=== PATIENT | female | born 1990 | race Caucasian/White ===

== ENCOUNTER → 2022-09-07 07:45 | Outpatient (REF) | payer OTHER, SELFPAY ==
--- NOTE | 2022-09-07 07:55 | CA_ITS ---
Transthoracic Echocardiogram Patient (Last, First, Middle): Stephany Sandoval R Gender: Female Date of : 1990 Age: 32 Procedure Date: 09/07/2022 Procedure Type: Transthoracic Echocardiogram Location: OP Height: 157.48 cm Weight: 89.36 kg BSA: 1.90 m2 Heart Rate: 70 bpm BP: 102 / 70 mmHg Privacy Attorney: SB Referring MD: Quentin Quarles MD Symptoms: R01.1 - Cardiac murmur, unspecified Study Quality: Adequate ECG Rhythm: Sinus Conclusions: - The left ventricular systolic function is normal. The calculated ejection fraction is 66% by biplane method. - No obvious valvular pathology seen on this study. - There is mild dilatation of the ascending aorta measuring 3.60 cm. Findings Left Ventricle Normal left ventricular cavity size. There is normal left ventricular wall thickness. The left ventricular systolic function is normal. The calculated ejection fraction is 66% by biplane method. There is no evidence of regional wall motion abnormalities. Diastolic function is normal for age. LV peak GLS -23.4% (normal). Right Ventricle Normal right ventricular cavity size and systolic function. Atria Both atria are normal in size. Aortic Valve There is a normal trileaflet aortic valve. There is no aortic valve stenosis. There is no aortic valve regurgitation. Mitral Valve The mitral valve appears normal. There is no mitral valve regurgitation. There is no mitral valve stenosis. Pulmonic Valve There is trace pulmonic valve regurgitation. Tricuspid Valve Normal tricuspid valve structure. There is mild tricuspid valve regurgitation. There is no evidence of pulmonary hypertension. Great Vessels There is mild dilatation of the ascending aorta measuring 3.60 cm. Venous The inferior vena cava is normal in size and collapses greater than 50% with inspiration. Pericardium/Pleural There is no evidence of pericardial effusion. Prior Study Comparison No prior study available for comparison. Recommendations, Care & Conclusions No obvious valvular pathology seen on this study. Measurements 2D Linear Measurements IVSd: 0.87 0.6-0.9/0.6-1.0 cm LVIDd: 4.67 3.9-5.3/4.2-5.9 cm LVIDd Index: 2.46 2.4-3.2/2.2-3.1 cm/m2 LVIDs: 2.95 2.0-3.6 cm LVPWd: 0.79 0.7-1.1 cm LA Diam: 3.80 2.7-3.8/3.0-4.0 cm LAIDs Index: 2.00 1.5-2.3 cm/m2 LV Mass: 158.36 67-162/88-224 g LV Mass Index: 83.35 43-95/49-115 g/m2 LVOT Diam: 2.10 3.0+(-)1.3 cm 2D Systolic Function EF 4C: 64.80 >55% EF 2C: 68.50 >55% EF BiP: 65.80 >55% Mitral Valve MV Pk E: 0.69 MV PK A: 0.67 MV Decel Time: 160.00 E/A: 1.00 E'Lateral: 10.40 E'Medial: 7.62 E/E' Med: 9.10 E/E' Lat: 6.60 PHT: 47.00 MVA PHT: 4.68 Decel [place]: 4.30 Aortic Valve AoV Pk Mando: 1.58 AoV Pk Grad: 10.00 BRODIE: 3.01 LVOT LVOT Pk Mando: 1.41 LVOT Mn Mando: 1.03 LVOT VTI: 0.32 LVOT Pk Grad: 8.00 LVOT Mn Grad: 5.00 LVOT Diam: 2.10 LVOT Area: 3.46 Diastolic Function MV Pk E: 0.69 MV Pk A: 0.67 E/A: 1.00 E'Medial: 7.62 E/E' Med: 9.10 E' Laterial: 10.40 E/E' Lat: 6.60 Right Ventricle TAPSE (mm): 20.40 TVS' Mando: 11.50 Tricuspid Valve TR Pk Mando: 1.94 TR Pk Grad: 15.00 RA Press: 3.00 RVSP: 18.00 Great Vessels Aorta Sinus of Valsalva: 3.00 2.0-3.5 cm Ao Asc: 3.60 2.1-3.4 cm Ao Arch: 2.90 Pulmonary Veins Pulm Vein S/D 1.10 Pulmonary Valve PV Pk Mando: 0.83 Peak PV Grad: 3.00 Updated in Other Vendor System with Status of Final Tramaine Mcnair MD electronically signed on 09/09/2022 12:55:10 PM with status of Final
== END ==
LOC: HO.CARD 07:45
PROVIDERS: PCP Family Medicine; Visit Provider Family Medicine
DX: R91.1 Solitary pulmonary nodule (principal)
CPT/HCPCS: 93306; 93356

== ENCOUNTER 2022-09-26 11:14 | Outpatient (REF) | payer OTHER, SELFPAY ==
[2022-09-26 21:51] LABS: Folate 9.6 ng/mL (> or = 4.0); Vitamin B12 498 pg/mL (200-900)
[2022-09-28 02:21] LABS: Syphilis Screen Nonreactive (Nonreactive)
[2022-09-28 03:50] LABS: HBS Num1 60.03 mIU/mL (0-7.99); HBc Num1 0.09 S/CO (0.00-0.79); HIV AB/AG Nonreactive (Nonreactive); HIV Num 1 0.08 S/CO (0.00-0.99); Hepatitis B Core Antibody Nonreactive (Nonreactive); Hepatitis B Surface Antigen Negative (Negative); ~HepC Num1 0.08 S/CO (0.00-0.79); ~Hepatitis B Surface Antibody REACTIVE (Nonreactive); ~Hepatitis C Antibody Nonreactive (Nonreactive)
[2022-09-28 16:28] LABS: CRP High Sensitivity 3.7 mg/L
== END 2022-09-26 11:15 | disposition home or self-care (01) ==
LOC: HO.WFDLDS 11:14
PROVIDERS: Visit Provider Family Medicine
DX: Z00.00 Encounter for general adult medical examination without abnormal findings (principal); Z11.4 Encounter for screening for human immunodeficiency virus [HIV]; R20.0 Anesthesia of skin; R20.2 Paresthesia of skin; I10 Essential (primary) hypertension; E53.8 Deficiency of other specified B group vitamins; Z20.2 Contact with and (suspected) exposure to infections with a predominantly sexual mode of transmission
CPT/HCPCS: 36415; 80053; 80061; 81003; 82043; 82607; 82728; 82746; 83540; 84443; 85025; 85652; 86141; 86704; 86706; 86780; 86803; 87340; 87389

== ENCOUNTER 2022-10-05 13:49 | Outpatient (AMB) | payer OTHER, SELFPAY ==
--- NOTE | 2022-10-05 13:53 | MHC.PC.OV ---
Vital Signs 10/05/22 13:56 Height 5 ft 2 in Weight 196 lb BMI 35.8 BP 114/66 Blood Pressure Location Lt brachial Position Sitting Pulse 80 Pulse Source Pulse Oximeter Pulse Oximetry (%) 97 Oxygen Delivery Method Room Air Intake Visit Reasons: CPE with f/u labs and health maint. Intake Note: Patient is here for physical and to follow up on labs and health maintenance. Is last menstrual period known: Yes Last menstrual period: 09/26/22 Allergies No Known Allergies Allergy (Verified 10/05/22 13:57) Tobacco use date assessed: 10/05/22 Dental Screening Dental Screen Date: 10/05/22 Did you have a dental visit in the last 12 months?: Yes Did you have a dental problem in the last 6 months where you did not have access to dental care?: No Was dental information given to patient?: No HPI CPE with f/u labs and health maint. HPI Details 32 y/o female presents for a CPE with f/u labss and health maintenance. Labs were drawn 09/26/22. Reviewed labs with pt. Triglycerides 91. TC 201. LDL 131. HDL 52. Elevated CRP. 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 She notes she has an appt. with Cardiology in November. Pt reports lightheadedness and some flush/sweating feeling. Pt reports some GERD. She reports she tries to get a healthy diet and exercises. [facility] Medical History Anxiety Surgical History History of dilation and curettage Hx of inguinal hernia surgery Family History Mother High blood pressure High cholesterol Father Asthma Maternal Grandmother High blood pressure Maternal Grandfather High blood pressure Alcoholism Family/Other Asthma High blood pressure Social History Housing: House Patient Tobacco Use Status: Never used Tobacco e-Cigarette/Vaping Use: Currently Using Second Hand Smoke Exposure: No service: No Current occupational status: employed Current occupation: [employer] Cognitive needs: No Hearing needs: No Vision needs: No Female Reproductive History Menstrual Date of last menstrual period: 09/26/22 Questionnaire Thrive Questionnaire Date Thrive assessed: 08/10/22 GRAY-7 AMB Questionnaire GRAY-7 Date GRAY - 7 assessed: 08/10/22 Source: Developed by Drs. Nhan Stephens, Merry Uribe, Rodney Edge and colleagues, with an educational yenni from [employer]. Review of Systems Const Denies chills, Denies fatigue, Denies fever(s), Denies headache(s) and Denies weakness Eyes Denies change in vision ENT Denies dizziness, Denies headache(s), Denies hearing loss, Denies nasal congestion, Denies sinus pain, Denies sinus pressure and Denies sore throat Card Denies chest pain, Denies lightheadedness, Denies dyspnea and Denies other (palpitations) Resp Denies cough, Denies dyspnea and Denies wheezing GI Denies abdominal pain, Denies melena, Denies hematochezia, Denies change in bowel habits, Denies dyspepsia and Denies nausea Denies hematuria and Denies dysuria Musc Denies abnormal gait, Denies myalgias, Denies arthralgias, Denies numbness and Denies tingling Skin/Breast Denies rash, Denies unusual bruising and Denies wounds Neuro Denies abnormal gait, Denies dizziness, Denies headache(s), Denies memory loss, Denies numbness, Denies Sensory deficit (Neuro), Denies tingling and Denies weakness Psych Denies anxiety, Denies depression and Denies memory loss Endo Denies cold intolerance, Denies fatigue, Denies heat intolerance, Denies polydipsia and Denies polyuria Smith/Lymph Denies easy bleeding and Denies easy bruising Aller/Immun Denies wheezing Physical exam (Primary Care) Vital Signs: Last Vital Signs Pulse 80 10/05/22 13:56 BP 114/66 10/05/22 13:56 Pulse Ox 97 10/05/22 13:56 Oxygen Delivery Method Room Air 10/05/22 13:56 BMI result Body Mass Index 35.8 Tobacco/Smoking Status: Tobacco use Status Tobacco use date assessed 10/05/22 10/05/22 14:02 Patient Tobacco Use Status Never used Tobacco 10/05/22 14:02 e-Cigarette/Vaping Use Currently Using 10/05/22 14:02 Thrive Assessment: Date of Thrive Assessment Date Thrive assessed 08/10/22 10/05/22 14:02 Const General: no acute distress, well developed, alert and awake Nutritional Appearance: well nourished Orientation/consciousness: patient oriented x3 HENMT Head: Yes normocephalic and Yes atraumatic Ears: hearing grossly normal bilaterally and TM's normal bilaterally General nose exam: Normal external nose present and Normal nares present Mouth: Normal oral and palatal mucosa present and moist mucous membranes Teeth and gingiva: dentition normal Throat: Yes posterior oropharynx normal Eyes General: appearance normal, both eyes and all related structures Pupils: Equal, round and reactive pupils present and Pupil accommodation reflex normal EOM: EOMs intact bilaterally Neck Neck: Yes normal visual inspection, Yes no lymphadenopathy and Yes trachea midline Thyroid: Thyroid normal Carotids: no bruits Lymphatic: no lymphadenopathy noted Chest Chest palpation & inspection: normal inspection of the chest Resp Effort & Inspection: normal respiratory effort Auscultation: clear to auscultation bilaterally Cardio Rate: regular rate Rhythm: regular rhythm Heart sounds: S1 normal heart sound present, S2 normal heart sound present, no gallops, no murmurs and no rubs Bruits: no abdominal aortic bruits and no carotid bruits GI Palpation (GI): No Abdominal aortic bruit present, Soft to palpation, nontender, No hepatosplenomegaly present and No Rebound tenderness present Auscultation: normal bowel sounds General: Yes no CVA tenderness Back/Spine/Pelvis Back: no CVA tenderness Cervical Spine: cervical ROM normal and No Cervical spine tenderness Thoracic/Lumbar Spine: thoraco-lumbar ROM normal, No pain with thoraco-lumbar ROM, No thoracic spinal tenderness and No lumbar spinal tenderness Skin Lesions: no lesions Rashes: no rashes Trauma: no lacerations or abrasions Wounds: no wounds Nails: normal Neuro General: patient oriented x3 Cranial nerves: Yes Equal, round and reactive pupils present Cognition (Neuro): normal cognition Gait exam (Neuro): Normal gait present Motor exam (neuro): 5/5 motor strength present throughout Sensory Exam: No Sensory deficit (Neuro) Deep tendon reflexes (DTR's): Right patellar reflex intensity grade: 2+ and Left patellar reflex intensity grade: 2+ Extrem General: Yes normal to inspection and No edema Psych Appearance: grossly normal Affect: normal affect Attitude: cooperative Thought process: Normal thought process present Assessment and Plan Assessment & Plan (1) Adult general medical exam: Code(s): Z00.00 - Encounter for general adult medical examination without abnormal findings Plan: 32-year-old female presents for complete physical exam Encouraged healthy diet with active lifestyle and plenty of exercise (2) Heart murmur: Code(s): R01.1 - Cardiac murmur, unspecified Plan: Echocardiogram shows normal valves and cardiac function Did note small aortic dilatation She has an appointment with cardiology (3) Ascending aorta dilatation: Code(s): I77.810 - Thoracic aortic ectasia Plan: Mild aortic dilatation Blood pressures are well controlled Cardiac function normal She has an appointment with cardiology (4) History of Mcgee's palsy: Code(s): Z86.69 - Personal history of other diseases of the nervous system and sense organs Plan: Had given her a script for Neurontin which is helping She can continue this however she can also try weaning off this at any time to see if this has resolved (5) Numbness and tingling: Code(s): R20.0 - Anesthesia of skin; R20.2 - Paresthesia of skin Plan: Numbness and tingling bilateral hands and feet which is intermittent. She does note that she has anxiety Lab work was unrevealing She will let me know if this changes in any way (6) Lightheadedness: Code(s): R42 - Dizziness and giddiness Plan: As above, she has issues with anxiety and I suspect that this is the cause. Cardiac function is normal by echo. Lab work was unrevealing Advise she hydrate well She has an appointment with cardiology (7) GERD (gastroesophageal reflux disease): Code(s): K21.9 - Gastro-esophageal reflux disease without esophagitis Plan: Frequent GERD symptoms essentially every day Start omeprazole Referred to GI (8) Anxiety: Code(s): F41.9 - Anxiety disorder, unspecified Plan: Has used hydroxyzine with some again seen Still has some symptoms and many of them are somatic such as flushing/sweating and some lightheadedness. Will trial a low dose of clonidine p.r.n. (9) Screening for cervical cancer: Code(s): Z12.4 - Encounter for screening for malignant neoplasm of cervix Orders: Referrals Gastroenterology Referral K21.9 - Gastro-esophageal reflux disease without esophagitis [employer] Referral Z12.4 - Encounter for screening for malignant neoplasm of cervix Medications: New clonidine HCl 0.1 mg PO BID 30 days PRN 60 tabs 1RF Anxiety/flushing/sweating omeprazole 40 mg (2 x 20 mg) PO DAILY 60 caps 2RF 30 days Coding Level of Care Code Est Pt Level 4 (51605) Est Pt Prev Care 18-39y(42253) Diagnoses Adult general medical exam Z00.00 Heart murmur R01.1 Ascending aorta dilatation I77.810 History of Mcgee's palsy Z86.69 Numbness and tingling R20.0; R20.2 Lightheadedness R42 GERD (gastroesophageal reflux disease) K21.9 Anxiety F41.9 Screening for cervical cancer Z12.4
[2022-10-05 13:56] VITALS: BP 114/66; PULSE 80; O2SAT 97; BMI 35.8
== END 2022-10-05 14:58 | disposition home or self-care (01) ==
PROVIDERS: Visit Provider Family Medicine
DX: Z00.00 Encounter for general adult medical examination without abnormal findings (principal); I77.810 Thoracic aortic ectasia; K21.9 Gastro-esophageal reflux disease without esophagitis; Z86.69 Personal history of other diseases of the nervous system and sense organs; F41.9 Anxiety disorder, unspecified; R01.1 Cardiac murmur, unspecified; R20.0 Anesthesia of skin; R20.2 Paresthesia of skin; R42 Dizziness and giddiness
CPT/HCPCS: 99395

== ENCOUNTER 2022-12-07 13:51 | Outpatient (AMB) | payer OTHER, SELFPAY ==
[2022-12-07 14:02] VITALS: BP 110/80; PULSE 85; BMI 35.6
--- NOTE | 2022-12-07 14:02 | MHC.OFFVIS ---
Intake Vital Signs 12/07/22 14:02 Height 5 ft 2 in Weight 194 lb 7.163 oz BMI 35.6 BP 110/80 Blood Pressure Location Lt brachial Position Sitting Pulse 85 Intake Visit Reasons: NPV/NACHO/MILD AORTA DILATION/MURMUR Intake Note: NPV w/ EKG Rn Provider Relations Required: No Accompanied by: Spouse Allergies No Known Allergies Allergy (Verified 12/07/22 14:05) Medication List - Last Reconciled 12/07/22 by Tramaine Mcnair MD No Known Home Meds HPI HPI Comments History of Present Illness Details Stephany is here for consultation for question of dilated ascending aorta. Patient herself is generally healthy without any major comorbidities. She states that she was told to have a cardiac murmur many years ago but otherwise nothing significant. She is generally active with no limitations whatsoever. Towards end of the day, she may feel some sensations of heart pounding which she believes from anxiety. No documented arrhythmias otherwise. She had an echocardiogram that had ascending aortic size measured at 3.6 cm. Otherwise, there is no family history of aortic aneurysm or aortic dissection. Her brother has congestive heart failure in his 30s but he is also extremely obese apparently. Mother has a history of atrial fibrillation. No premature coronary disease. [facility] Medical History (Updated 12/07/22 @ 14:49 by Tramaine Mcnair MD) Anxiety Surgical History History of dilation and curettage Hx of inguinal hernia surgery Family History (Updated 12/07/22 @ 14:21 by Tramaine Mcnair MD) Mother High blood pressure High cholesterol Atrial fibrillation Father Asthma Maternal Grandmother High blood pressure Maternal Grandfather High blood pressure Alcoholism Family/Other Asthma High blood pressure Brother CHF (congestive heart failure) Social History Housing: House Patient Tobacco Use Status: Never used Tobacco e-Cigarette/Vaping Use: Currently Using Second Hand Smoke Exposure: No service: No Current occupational status: employed Current occupation: [employer] Cognitive needs: No Hearing needs: No Vision needs: No Review of Systems Const Denies chills, Denies daytime sleepiness, Denies fatigue, Denies fever(s), Denies frequent falls, Denies night sweats, Denies snoring, Denies weakness, Denies weight gain and Denies weight loss Eyes Denies loss of vision ENT Denies dizziness and Denies hearing loss Card Denies chest pain, Denies chest pain with activity, Denies syncope, Denies rapid heart rate, Denies edema, Denies claudication, Denies leg edema, Denies lightheadedness, Denies palpitations, Denies dyspnea, Denies dyspnea on exertion and Denies orthopnea Resp Denies cough, Denies excessive phlegm production, Denies dyspnea, Denies dyspnea on exertion, Denies snoring and Denies wheezing GI Denies abdominal pain, Denies hematochezia, Denies change in bowel habits, Denies change in stool character, Denies heartburn, Denies nausea and Denies vomiting Denies hematuria, Denies urinary frequency and Denies dysuria Musc Denies arthralgias, Denies muscle weakness, Denies numbness and Denies tingling Skin/Breast Denies nail changes and Denies rash Neuro Denies Abnormal speech present, Denies dizziness, Denies syncope, Denies frequent falls, Denies loss of vision, Denies memory loss, Denies numbness, Denies tingling and Denies weakness Psych Denies depression and Denies memory loss Endo Denies fatigue and Denies palpitations Aller/Immun Denies wheezing Physical Exam Vital Signs: Last Vital Signs Pulse 85 12/07/22 14:02 BP 110/80 12/07/22 14:02 BMI result Body Mass Index 35.6 Const General: comfortable and no acute distress Orientation/consciousness: patient oriented x3 HEENT Other: Unremarkable Head: Yes normal to inspection Neck Neck: Yes normal visual inspection Chest Chest palpation & inspection: normal inspection of the chest Resp Auscultation: clear to auscultation bilaterally Cardio Palpation: normal PMI Heart sounds: S1 normal heart sound present, S2 normal heart sound present, no gallops, Murmur heart sound present systolic I/ and at the right sternal border and no rubs GI Palpation (GI): Soft to palpation Back/Spine/Pelvis Other: unremarkable Skin General skin exam: no rashes or lesions noted Neuro General: patient oriented x3 Speech: No Abnormal speech present Extrem General: Yes normal to inspection Psych Mental Status: mental status grossly normal Office Procedures EKG Details: EKG with sinus rhythm at 85/Min; no significant ST-T changes and otherwise unremarkable. [place] [id number], Complete Assessment & Plan Assessment & Plan (1) Mild ascending aorta dilatation: Code(s): I77.810 - Thoracic aortic ectasia (2) Heart palpitations: Code(s): R00.2 - Palpitations Plan In the recent echocardiogram, LVEF at 66%. Normal strain. Unremarkable valves. Ascending aortic size was 3.6 cm. Sinus of Valsalva and the aortic arch within normal limits. Pathophysiology of ascending aortic dilatation discussed in great detail with patient and significant other. At the current size, this is considered to be either borderline or mildly dilated only. Could also be just top-normal considering her weight. Her blood pressure seems to be very much in the normal range. There is no family history of aortic dissection or aortic aneurysm. Hence no specific management. We can recheck it sometime next year to ensure there is no significant change. If that is the case, then would be reassuring. If indeed there is a increase in size then will need follow-up. With regard to the question of palpitations, seems very nonspecific. She thinks it is just anxiety. Discussed about Holter but she thinks that will make her rather more anxious. Hence holding off at this time. Plan discussed and they are agreeable. Orders: Orders CA echo transthoracic complete 6 Months I77.810 - Thoracic aortic ectasia Coding Level of Care Code New Pt Level 3 (73342) Diagnoses Mild ascending aorta dilatation I77.810 Heart palpitations R00.2 CPT Codes EKG - CPT: 09611-[id number], Complete ([id number])
== END 2022-12-07 14:31 | disposition home or self-care (01) ==
PROVIDERS: PCP Family Medicine; Visit Provider Internal Medicine
DX: I77.810 Thoracic aortic ectasia (principal); R00.2 Palpitations
CPT/HCPCS: 93010; 99203

== ENCOUNTER → 2022-12-07 13:51 | Outpatient (BNVA) | payer OTHER, SELFPAY | PROVIDERS: PCP Family Medicine; Visit Provider Internal Medicine | DX: I77.810 Thoracic aortic ectasia (principal); R00.2 Palpitations | CPT/HCPCS: 93005 ==

== ENCOUNTER 2022-12-27 08:04 | Outpatient (AMB) | payer OTHER, SELFPAY ==
--- NOTE | 2022-12-27 08:07 | MHC.OFFVIS ---
Intake Vital Signs 12/27/22 08:19 Height 5 ft 2 in Weight 162 lb BMI 29.6 BP 120/70 Blood Pressure Location Lt brachial Position Sitting Pulse 74 Intake Visit Reasons: Gastroesophageal reflux disease (GERD) Intake Note: Patient new consult for GERD. Patient cc: N/V on and off, acid reflex with burning sensation and some diarrhea. Ceramic Plater Required: No Accompanied by: Self / Same As Patient Allergies No Known Allergies Allergy (Verified 12/27/22 08:15) HPI HPI Comments History of Present Illness Details 32-year-old female referred with persistent GERD-intermittent nausea vomiting-bile/ yellow- acid reflux since high school- no meds-she had taken Tums however not currently prescribed omeprazole not covered by insurance- she admits to alot of anxiety - no meds-she has palpitations, she was recently evaluated by Cardiology-she does have a murmur-for she will follow back with them in 1 year migraines with menses- menses normal She had an EGD and colonoscopy years ago- @ [facility]- no findings- No fever, chills hematemesis or hematochezia [facility] Medical History (Updated 12/27/22 @ 09:04 by Esmer Cook PA-C) Anxiety Surgical History History of dilation and curettage Hx of inguinal hernia surgery Family History Mother High blood pressure High cholesterol Atrial fibrillation Father Asthma Maternal Grandmother High blood pressure Maternal Grandfather High blood pressure Alcoholism Family/Other Asthma High blood pressure Brother CHF (congestive heart failure) Social History Housing: House Patient Tobacco Use Status: Never used Tobacco e-Cigarette/Vaping Use: Currently Using Second Hand Smoke Exposure: No service: No Current occupational status: employed Current occupation: [employer] Cognitive needs: No Hearing needs: No Vision needs: No Review of Systems Const All systems reviewed & are unremarkable except as noted in HPI and below Card Denies chest pain, Denies irregular heart rhythm, Denies lightheadedness and Denies dyspnea Resp Denies dyspnea GI Reports heartburn, Reports nausea and Reports vomiting Psych Reports anxiety, Denies homicidal ideation and Denies suicidal ideation Physical Exam Vital Signs: Last Vital Signs Pulse 74 12/27/22 08:19 BP 120/70 12/27/22 08:19 BMI result Body Mass Index 29.6 Const General: cooperative, healthy appearing, comfortable, no acute distress, anxious and well groomed Orientation/consciousness: patient oriented x3 Limitations: no limitations Eyes Sclerae: sclerae normal Resp Effort & Inspection: normal respiratory effort and able to speak in complete sentences Auscultation: clear to auscultation bilaterally, no rales, no rhonchi and no wheezes Cardio Rate: regular rate Rhythm: regular rhythm Heart sounds: S1 normal heart sound present, S2 normal heart sound present and Other heart sounds present (Her murmur was not appreciated) GI Palpation (GI): Soft to palpation and nontender Auscultation: normal bowel sounds Skin General skin exam: no rashes or lesions noted Neuro General: patient oriented x3 Extrem General: Yes full ROM Psych Appearance: grossly normal and well kempt Mental Status: mental status grossly normal Speech and movement: Normal speech and movement present Affect: normal affect Attitude: cooperative Thought process: Normal thought process present Thought content: Normal thought content present Insight: Good insight present (Psych) Judgement: Good judgement present (Psych) Results Reviewed Results Reviewed: Reviewed labs normal CBC, CMP no anemia liver enzymes normal Assessment & Plan Assessment & Plan (1) GERD (gastroesophageal reflux disease): Comment: Persistent acid reflux-will get H pylori stool antigen She will give trial to Carafate Code(s): K21.9 - Gastro-esophageal reflux disease without esophagitis Plan: Stool HP Cararfate U/S (2) Nausea & vomiting: Comment: Q.a.m. for many years-described bile -gallbladder/verses reflux-needs further eval Normal menses Will evaluate gallbladder Code(s): R11.2 - Nausea with vomiting, unspecified (3) Anxiety: Comment: anxiety, no medications-she feels she can deal does not want to give trial to medication-understandable however depending on persistence Code(s): F41.9 - Anxiety disorder, unspecified Plan: Discussed history, no medications, not interested at this point Plan H pylori stool antigen-if positive treat Carafate 1 g b.i.d. Reflux precautions Avoid culprits Abdominal ultrasound Orders: Orders H pylori Ag Stool Today A04.8 - Other specified bacterial intestinal infections US abdomen complete Today K21.9 - Gastro-esophageal reflux disease without esophagitis Medications: New sucralfate 1 g PO BID 4 weeks 56 tabs 0RF Patient Instructions: Very pleasant somewhat anxious 32-year-old female persistent acid reflux-may have functional component-she will continue to monitor if she prefers to manage H pylori stool antigen-if positive treat Carafate 1 g b.i.d. Reflux precautions Avoid culprits Abdominal ultrasound Coding Level of Care Code New Pt Level 3 (24446) Diagnoses GERD (gastroesophageal reflux disease) K21.9 Nausea & vomiting R11.2 Anxiety F41.9 Time Spent (min) 30
[2022-12-27 08:19] VITALS: BP 120/70; PULSE 74; BMI 29.6
== END 2022-12-28 13:12 | disposition home or self-care (01) ==
LOC: HO.HGIW 08:04
PROVIDERS: PCP Family Medicine; Visit Provider Physician Assistant
DX: K21.9 Gastro-esophageal reflux disease without esophagitis (principal); R11.2 Nausea with vomiting, unspecified; F41.9 Anxiety disorder, unspecified
CPT/HCPCS: 99203

== ENCOUNTER → 2022-12-27 08:04 | Outpatient (BNVA) | payer OTHER, SELFPAY | PROVIDERS: PCP Family Medicine; Visit Provider Physician Assistant ==

== ENCOUNTER 2023-01-13 10:44 | Outpatient (AMB) | payer OTHER, SELFPAY ==
[2023-01-13 10:54] VITALS: BMI 35.5
--- NOTE | 2023-01-13 10:54 | MHC.OFFVIS ---
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 She delivered her children at [facility]. Her last had a fast delivery but the itself she had a lot of varicose veins and she had to wear the vaginal support special underwear to help support the veins she feels like sometime she still feels heavy down there she would like to get everything checked from that point of view she does make herself void frequently in between clients at work and she does not hold her urine excessively. She does Kegel's also. She has no worries about STDs she gets very regular periods she uses condoms for control she had a Mirena in the past and she was not a fan of the hormones and control so she is better off with just the condoms. She is in a monogamous relationship her oldest child 12 years on down. 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 [facility] Medical History Anxiety Surgical History History of dilation and curettage Hx of inguinal hernia surgery Family History Mother High blood pressure High cholesterol Atrial fibrillation Father Asthma Maternal Grandmother High blood pressure Maternal Grandfather High blood pressure Alcoholism Family/Other Asthma High blood pressure Brother CHF (congestive heart failure) Social History (Updated 01/13/23 @ 11:00 by RICKY Mosqueda Housing: House Patient Tobacco Use Status: Never used Tobacco e-Cigarette/Vaping Use: Currently Using Second Hand Smoke Exposure: No service: No Current occupational status: employed Current occupation: [employer] Cognitive needs: No Hearing needs: No Vision needs: No Female Reproductive History Menstrual Age of Menarche: 11 Duration of menses: 3-5 days Date of last menstrual period: 12/22/22 control method: none Total pregnancies: 4 Full term: 3 Number of Living Children: 3 Ab spontaneous: 1 Physical Exam Vital Signs: BMI result Body Mass Index 35.5 Const General: healthy appearing, comfortable, no acute distress, well developed and alert Nutritional Appearance: average body habitus Orientation/consciousness: patient oriented x3 Limitations: no limitations HEENT Head: Yes normocephalic Neck Neck: Yes normal visual inspection Chest Chest palpation & inspection: normal inspection of the chest Breast/axilla inspection: normal inspection of the breasts and normal inspection of the axillae Breast/axilla palpation: normal palpation of the breasts and normal palpation of the axillae Resp Effort & Inspection: normal respiratory effort GI Inspection: Yes normal to inspection, No Abdominal wall edema and No distended Palpation (GI): Soft to palpation and nontender Other: Normal external exam able to visualize veins in vulva but they are not bulging or swollen all. Vagina pink and moist cervix pink moist multiparous smooth healthy mobile nontender normal scant white discharge uterus small midposition to anteverted adnexa not enlarged nontender good tone with Kegel and able to sustain the contraction with elevation as well. General: Yes bladder normal to palpation External Female Exam: normal external appearance and normal appearance of the urethra Speculum Exam - Vagina: normal appearance of the vagina, normal palpation and normal vaginal discharge Speculum Exam - Cervix: normal appearance of the cervix, normal palpation and nontender Bimanual exam- vagina & uterus: normal bimanual exam, normal palpation, uterine size normal, bladder normal to palpation, consistency normal, normal palpation, uterine mobility normal, uterine shape normal, No Cervical tenderness present, non-tender and no cervical motion tenderness Bimanual Exam- Adnexa, other: normal adnexae, no masses, normal and No adnexal tenderness Neuro General: patient oriented x3 Assessment & Plan Assessment & Plan (1) Screening for cervical cancer: Comment: no hx abnls; 01/13/23 pap.. Code(s): Z12.4 - Encounter for screening for malignant neoplasm of cervix (2) Well woman exam with routine gynecological exam: Code(s): Z01.419 - Encounter for gynecological examination (general) (routine) without abnormal findings Plan -----Discussed in this visit the following: healthy balanced diet, regular and consistent exercise, getting recommended health screens, doing the best she can for her particular health concerns, kegel exercises, pap smear screening and followup recommendations, mammography screening and SBE, normal changes in cycles in her life stage--- . Reviewed Kegel's she does them herself and she maintains good bladder function by voiding in between patients---I Had the patient and demonstrate a Kegel contraction at the end of the exam, ordered in order to explain a Kegel exercise, and instructed the patient on doing the same exercises several times a day with increasing strength each time. One useful to is to imagine pursestring around the vagina and pulling it tight and upwards as if raising the vagina, or imagining that her tight muscles are on the 1st floor and she is trying to pull them up to the 5th floor and then slowly letting them go down. To try to do these several times a day but focus on the quality and the strength of the exercises more than the quantity, and tried isolate just those muscles and not involve other body parts. ----I reviewed available options for Control Methods and their associated side effect profiles. In particular, we discussed the method most of interest to her.-is content to use condoms which work for her Reviewed changes and menstrual cycles that can happen over the years and mitul menopausal symptoms though does not sound like she is having any she did note some dryness occasionally at night but it might be because of her frequent voiding and wiping. Orders: Orders Pap Smear Today Z12.4 - Encounter for screening for malignant neoplasm of cervix Coding Level of Care Code New Pt Prev Care [id number] Diagnoses Screening for cervical cancer Z12.4 Well woman exam with routine gynecological exam Z01.419
== END 2023-01-13 11:52 | disposition home or self-care (01) ==
PROVIDERS: PCP Family Medicine; Visit Provider Advanced Practice Midwife
DX: Z12.4 Encounter for screening for malignant neoplasm of cervix (principal); Z01.419 Encounter for gynecological examination (general) (routine) without abnormal findings
CPT/HCPCS: 99385

== ENCOUNTER 2023-01-13 10:44 | Outpatient (REF) | payer OTHER, SELFPAY ==
[2023-01-19 02:43] LABS: HPV mRNA E6/E7 rflx Not Detected (Not Detected)
== END 2023-01-13 10:45 | disposition home or self-care (01) ==
LOC: HO.LNP 10:44
PROVIDERS: PCP Family Medicine; Visit Provider Advanced Practice Midwife
DX: Z01.419 Encounter for gynecological examination (general) (routine) without abnormal findings (principal); Z11.51 Encounter for screening for human papillomavirus (HPV)
CPT/HCPCS: 87624; 88142

== ENCOUNTER 2023-01-26 07:45 | Outpatient (REF) | payer OTHER, SELFPAY ==
--- NOTE | ~2023-01-26 | US_ITS ---
EXAMINATION: US ABDOMEN COMPLETE CLINICAL INFORMATION: Gastroesophageal reflux disease without esophagitis. COMPARISON: None available. TECHNIQUE: Real-time imaging of the abdominal viscera. FINDINGS: PANCREAS: Normal. ABDOMINAL AORTA: The proximal, mid, and distal segments are normal in caliber. INFERIOR VENA CAVA: Visualized portions are normal. LIVER: The liver is normal in size. The liver contour is normal. Increased echogenicity of the liver parenchyma, this can be seen in the setting of hepatic steatosis or liver parenchymal disease. No focal hepatic lesion. There is no intrahepatic biliary duct dilatation seen. GALLBLADDER: Normal. The gallbladder is physiologically distended without evidence of stones, sludge, polyps, wall thickening or pericholecystic fluid. COMMON BILE DUCT: Normal in caliber measuring 0.3 cm in diameter. RIGHT KIDNEY: Normal. No hydronephrosis. No renal calculi or focal parenchymal lesions. The kidney measures 11.5 cm in maximum dimension. LEFT KIDNEY: Normal. No hydronephrosis. No renal calculi or focal parenchymal lesions. The kidney measures 12.8 cm in maximum dimension. SPLEEN: Normal. The spleen measures 9.9 cm in maximum dimension. FREE FLUID: None. US/US abdomen complete IMPRESSION: * Increased echogenicity of the liver parenchyma, this can be seen in the setting of hepatic steatosis or liver parenchymal disease. * Ultrasound otherwise normal. * Ultrasound cannot assess reflux, May consider fluoroscopy Barium study/esophagogram could be utilized to assess for possible gastroesophageal reflux.
== END 2023-01-26 07:46 | disposition home or self-care (01) ==
LOC: HO.US 07:45
PROVIDERS: PCP Family Medicine; Visit Provider Physician Assistant
DX: K21.9 Gastro-esophageal reflux disease without esophagitis (principal)
CPT/HCPCS: 76700

== ENCOUNTER → 2023-06-13 07:43 | Outpatient (REF) | payer OTHER, SELFPAY ==
--- NOTE | 2023-06-13 07:45 | CA_ITS ---
Transthoracic Echocardiogram Patient (Last, First, Middle): Stephany Sandoval, Gender: Female Date of : 1990 Age: 33 Procedure Date: 06/13/2023 Procedure Type: Transthoracic Echocardiogram Location: OP Height: 157.48 cm Weight: 88. 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 The calculated ejection fraction is 68% by biplane method. - No obvious valvular pathology seen on this study. - There is mild dilatation of the ascending aorta measuring 3.80 cm. Findings Left Ventricle Normal left ventricular cavity size. There is normal left ventricular wall thickness. The left ventricular systolic function is normal. The calculated ejection fraction is 68% by biplane method. There is no evidence of regional wall motion abnormalities. Diastolic function is normal for age. LV peak GLS -24%. Right Ventricle Normal right ventricular cavity size and systolic function. Atria Both atria are normal in size. Aortic Valve There is a normal trileaflet aortic valve. There is no aortic valve stenosis. There is no aortic valve regurgitation. Mitral Valve The mitral valve appears normal. There is no mitral valve regurgitation. There is no mitral valve stenosis. Pulmonic Valve The pulmonic valve is likely normal. Tricuspid Valve Normal tricuspid valve structure. There is mild tricuspid valve regurgitation. There is no evidence of pulmonary hypertension. Great Vessels There is mild dilatation of the ascending aorta measuring 3.80 cm. Venous The inferior vena cava is normal in size and collapses greater than 50% with inspiration. Pericardium/Pleural There is no evidence of pericardial effusion. Prior Study Comparison Changes noted compared to prior study dated: 09/07/2022. slight increase in ascending aortic size. Recommendations, Care & Conclusions No obvious valvular pathology seen on this study. Measurements 2D Linear Measurements IVSd: 0.96 0.6-0.9/0.6-1.0 cm LVIDd: 4.27 3.9-5.3/4.2-5.9 cm LVIDd Index: 2.26 2.4-3.2/2.2-3.1 cm/m2 LVIDs: 2.66 2.0-3.6 cm LVPWd: 1.00 0.7-1.1 cm LA Diam: 3.30 2.7-3.8/3.0-4.0 cm LAIDs Index: 1.75 1.5-2.3 cm/m2 LV Mass: 170.27 67-162/88-224 g LV Mass Index: 90.09 43-95/49-115 g/m2 LVOT Diam: 2.20 3.0+(-)1.3 cm 2D Systolic Function EF 4C: 63.00 >55% EF 2C: 68.80 >55% EF BiP: 67.70 >55% Mitral Valve MV Pk E: 0.68 MV PK A: 0.60 MV Decel Time: 216.00 E/A: 1.10 E'Lateral: 11.50 E'Medial: 7.62 E/E' Med: 8.90 E/E' Lat: 5.90 PHT: 63.00 MVA PHT: 3.49 Decel [place]: 3.15 Aortic Valve AoV Pk Mando: 1.78 AoV Mn Mando: 1.22 AoV VTI: 0.41 AoV Pk Grad: 13.00 Aov Mn Grad: 7.00 BRODIE Cont.VTI: 3.10 LVOT LVOT Pk Mando: 1.50 LVOT Mn Mando: 1.00 LVOT VTI: 0.34 LVOT Pk Grad: 9.00 LVOT Mn Grad: 5.00 LVOT Diam: 2.20 LVOT Area: 3.80 Diastolic Function MV Pk E: 0.68 MV Pk A: 0.60 E/A: 1.10 E'Medial: 7.62 E/E' Med: 8.90 E' Laterial: 11.50 E/E' Lat: 5.90 Right Ventricle TAPSE (mm): 27.20 TVS' Mando: 12.10 Tricuspid Valve TR Pk Mando: 1.81 TR Pk Grad: 13.00 RA Press: 3.00 RVSP: 16.00 Great Vessels Aorta Sinus of Valsalva: 3.19 2.0-3.[address] [place]: 3.20 1.7-3.4 cm Ao Asc: 3.80 2.1-3.4 cm Ao Arch: 3.20 Updated in Other Vendor System with Status of Final Tramaine Mcnair MD electronically signed on 06/13/2023 1:48:34 PM with status of Final
== END ==
LOC: HO.CARD 07:43
PROVIDERS: PCP Family Medicine; Visit Provider Internal Medicine
DX: I77.810 Thoracic aortic ectasia (principal)
CPT/HCPCS: 93306; 93356

== ENCOUNTER → 2023-06-13 07:45 | Outpatient (BNV) | payer OTHER, SELFPAY | PROVIDERS: PCP Family Medicine; Visit Provider Internal Medicine | DX: I71.21 Aneurysm of the ascending aorta, without rupture (principal) | CPT/HCPCS: 93306; 93356 ==

== ENCOUNTER 2023-08-17 12:13 | Emergency (ER) | payer OTHER, SELFPAY ==
--- NOTE | ~2023-08-17 | CT_ITS ---
EXAMINATION: CT ANGIOGRAM OF THE CHEST WITH AND WITHOUT CONTRAST (CT PULMONARY ANGIOGRAM FOR PE) CLINICAL INFORMATION: Reason for Exam SOB, CP, hx of ascending aorta dilatation COMPARISON: None available. TECHNIQUE: Prior to contrast administration, noncontrast localization images were obtained. Subsequently, multidetector volumetric imaging was performed from the thoracic inlet to below the diaphragms following the administration of 80 mL Omnipaque 350 intravenous contrast. No contrast reaction reported Sagittal, coronal, and MIP oblique sagittal reformatted images were obtained on the CT workstation, uploaded to PACS, and reviewed. This CT examination was performed using dose optimization techniques as appropriate, variously including the following: *Automated exposure control *Adjustment of mA and/or kV according to patient size (this includes techniques or standardized protocols for targeted exams where dose is matched to indication/reason for exam; i.e. extremities or head) *Use of iterative reconstruction technique Total exam dose-length product 266 mGy-cm FINDINGS: QUALITY OF STUDY/CONTRAST BOLUS: Satisfactory. PULMONARY ARTERIES: No pulmonary emboli. Borderline enlargement main pulmonary artery suggesting elements of pulmonary arterial hypertension. THORACIC AORTA: No aneurysm. LUNG/PLEURA: Bilateral lung apices are not included in [id number] limiting evaluation. 2 mm nodular focus along the anterolateral aspect of the right middle lobe (series 7, image 193). 3 mm pleural-based nodular focus along the posterior lateral aspect of the right lower lobe (series 7, image 175). 3 mm nodular focus along the posterior aspect of the left upper lobe abutting the left major fissure (series 7, image 112). Central airways are patent. No pneumothorax. No large pleural effusion. Bibasilar atelectasis. MEDIASTINUM: Heart is not enlarged. No pericardial effusion. No coronary artery calcifications are noted. No enlarged lymph nodes per size criteria. No evidence of septal bowing or right heart strain. CHEST WALL/AXILLA: No axillary or internal mammary lymphadenopathy. OSSEOUS STRUCTURES: Multilevel degenerative changes of the thoracolumbar spine. UPPER ABDOMEN: Small hiatal hernia. Decreased hepatic attenuation suggesting hepatic steatosis. No reflux of contrast into the hepatic veins to suggest elevated right heart pressures. CT/CT angio chest PE protocol IMPRESSION: 1. No pulmonary emboli. 2. Borderline enlargement main pulmonary artery suggesting elements of pulmonary arterial hypertension. 3. Multiple bilateral pulmonary nodules the largest measuring up to 3 mm. Follow-up as per Fleischner criteria 4. Small hiatal hernia. 5. Decreased hepatic attenuation suggesting hepatic steatosis. According to the UPDATED 2017 Fleischner Society recommendations, the advised follow-up imaging for solid nodules < 6 mm is: HIGH RISK PATIENT: Optional CT at 12 months.
--- NOTE | ~2023-08-17 | XR_ITS ---
EXAMINATION: XR CHEST CLINICAL INFORMATION: Shortness of breath COMPARISON: None available. TECHNIQUE: PA view of the chest was obtained. FINDINGS: No significant abnormality is noted involving the heart, lungs, mediastinum, bony thorax or soft tissues. XR/XR chest 1V IMPRESSION: No acute disease.
--- NOTE | 2023-08-17 13:16 | ECG_ITS ---
Test Reason : sob Blood Pressure : / mmHG Vent. Rate : 069 BPM Atrial Rate : 069 BPM P-R Int : 160 ms QRS Dur : 078 ms QT Int : 384 ms P-R-T Axes : 041 036 030 degrees QTc Int : 411 ms Normal sinus rhythm Normal ECG No previous ECGs available Referred By: Humphrey Gomez Electronically Signed By:DIANE TAYLOR
[2023-08-17 13:25] VITALS: BP 129/90; PULSE 73; RESP 18; TEMP 36.8; O2SAT 100; BMI 36.6
--- NOTE | 2023-08-17 13:25 | ED_ITS ---
[facility] - General Adult General Chief complaint: Dyspnea Stated complaint: SOB Time Seen by Provider: 08/17/23 15:45 Source: patient and RN notes reviewed Mode of arrival: ambulatory Limitations: no limitations History of Present Illness ED Provider: Edna Sawyer PA-C [facility] narrative: 33-year-old female, with a history of a mild ascending aorta dilation, who presents emergency department with complaints of chest pain and shortness of breath x3 days. Patient states she suddenly felt as though she could not take a deep breath 3 days ago. She states that she is unable to take this deep breath due to tightness as well as pain in her chest. States that she feels as though she has not getting enough oxygen states that she has to yawn to feel as though she is getting enough oxygen into her lungs. She reports some chest pain. She denies any nausea, vomiting, diarrhea or cough. No congestion or fevers. An echocardiogram 2 months ago which she states was ?abnormal?. She has been followed by Dr. Mcnair. Denies any recent travel, surgery, hospitalizations. No history of blood clots. She has not on control or hormone replacement. No other complaints or concerns at this time. MD complaint: Chest pain, shortness of breath Onset (ago): day(s) Radiation: non-radiation Quality: stabbing Pain Consistency: constant Relieving factors: none Exacerbating factors: none Associated symptoms: chest pain Treatments prior to arrival: none Related Data Home Medications ?Medication ?Instructions ?Recorded ?Confirmed clonidine HCl 0.1 mg tablet 0.1 mg PO BID 01/13/23 01/13/23 Previous Rx's ?Medication ?Instructions ?Recorded sucralfate 1 gram tablet 1 g PO BID #56 tabs 01/24/23 albuterol sulfate 90 mcg/actuation 2 puff inhalation 6XD PRN 08/17/23 aerosol inhaler shortness of breath or wheezing #6.7 grams prednisone 20 mg tablet 40 mg (2 x 20 mg) PO DAILY 5 days 08/17/23 #10 tabs Allergies Allergy/AdvReac Type Severity Reaction Status Date / Time No Known Allergies Allergy Verified 08/17/23 13:27 Review of Systems 2 Review of Systems: Yes all other systems are reviewed and are negative Constitutional: Constitutional: Reports as per [facility] Past Medical History Medical History Anxiety Surgical History History of dilation and curettage Hx of inguinal hernia surgery Family History Family History Mother High blood pressure High cholesterol Atrial fibrillation Father Asthma Maternal Grandmother High blood pressure Maternal Grandfather High blood pressure Alcoholism Family/Other Asthma High blood pressure Brother CHF (congestive heart failure) Social History Social History (Updated 01/13/23 @ 11:00 by BRIANNA Mosqueda) Housing: House Patient Tobacco Use Status: Never used Tobacco e-Cigarette/Vaping Use: Currently Using Second Hand Smoke Exposure: No Advance Directives: No Advance Directives Information Provided: No service: No Current occupational status: employed Current occupation: [employer] Cognitive needs: No Hearing needs: No Vision needs: No Physical Exam ED Vital Signs: Vital Signs - 24 hr 08/17/23 13:25 08/17/23 16:21 Temperature 98.2 F Pulse Rate 73 70 Respiratory Rate 18 20 Blood Pressure 129/90 H 134/70 Pulse Oximetry 100 99 Oxygen Delivery Method Room Air Room Air BMI result Body Mass Index 36.6 Const General: cooperative, comfortable and no acute distress Orientation/consciousness: patient oriented x3 Limitations: no limitations HENMT Head: Yes normal to inspection, Yes normocephalic and Yes atraumatic Ears: hearing grossly normal bilaterally General nose exam: Normal external nose present Face and sinus: Yes normal facial exam Mouth: Normal oral and palatal mucosa present, oropharynx normal and moist mucous membranes Throat: Yes posterior oropharynx normal Eyes General: appearance normal, both eyes and all related structures Eyelids: Yes eyelids normal Conjunctivae: conjunctivae normal Sclerae: sclerae normal Pupils: Equal, round and reactive pupils present EOM: EOMs intact bilaterally Neck Neck: Yes normal visual inspection, Yes full ROM and Yes no lymphadenopathy Lymphatic: no lymphadenopathy noted Chest Chest palpation & inspection: normal inspection of the chest Resp Effort & Inspection: normal respiratory effort and able to speak in complete sentences Auscultation: clear to auscultation bilaterally, no crackles, no rales, no rhonchi and no wheezes Cardio Rate: regular rate Rhythm: regular rhythm Heart sounds: S1 normal heart sound present and S2 normal heart sound present GI Inspection: Yes normal to inspection Skin General skin exam: no rashes or lesions noted Trauma: no lacerations or abrasions Wounds: no wounds Neuro General: patient oriented x3 and moves all extremities Cranial nerves: Yes Equal, round and reactive pupils present Extrem General: Yes normal to inspection Right upper extremity: normal to inspection Left upper extremity: normal to inspection Right lower extremity: normal to inspection Left lower extremity: normal to inspection Course Course Course Narrative: This is an RME done by NATHAN Gomez: Additional HPI, ROS, PE not included below will be deferred to primary provider. 33 year old female hx of vaping, ascending aorta dialation, anxiety, heart murmur, bells palsy presents with constant chest pain which moves and sob x 3 days. States she has stopped vaping x 3 days ever since she noticed the sob. No recent travel. Appearance: Alert.? Oriented X3.? No acute cardiopulmonary distress distress.? Head: Normocephalic, atraumatic, no step-offs or deformities CVS: Pulses normal.? Respiratory: No respiratory distress.? Abdomen: Soft and nontender.? Skin: ? Normal skin color. Extremities: 5/5 strength to bilateral upper and lower extremities Back: No midline tenderness, no C-spine tenderness, full range of motion, No CVA tenderness bilaterally Neuro: Oriented X 3.? No motor deficit.? No sensory deficit. Reevaluation(s) Reevaluation #1: Chest CT revealing no pulmonary emboli. There is borderline enlargement suggesting possible pulmonary artery hypertension. There is also multiple pulmonary nodule area there is a hiatal hernia and evidence of fatty liver. Patient has not had any episodes of hypoxia. Walking O2 sat normal. EKG normal, labs normal. Discussed workup with patient and at bedside. It is unclear what is causing her to have a symptoms however workup today reassuring. Advised pt to follow up with cardiology, call tomorrow to make appointment. Given return precautions, pt understands and agrees with plan. Time: 18:59 Medications Administered Discontinued Medications Generic Name Dose Route Start Last Admin Trade Name Freq PRN Reason Stop Dose Admin Iohexol 100 ml 08/17/23 16:37 08/17/23 16:37 Iohexol 350 Mg/Ml 100 Ml Infus..Btl IV 08/17/23 16:38 65 ml ONCE ONE Administration Medical Decision Making Medical Decision Making [facility] Narrative: This is a 33-year-old female, with a history of an enlarged ascending aorta, presents emergency department with complaints of chest pain and shortness of breath x3 days. On arrival, vital signs within, she is speaking in full sentences under no acute respiratory distress. Oxygen saturation 100% room air. Lungs are clear to auscultation bilaterally. Were obtained prior to my assessment, she has no leukocytosis, stable H&H, chemistry within normal limits. Troponin less 2.7. Viral swabs unremarkable. Chest x-ray normal. EKG normal sinus rhythm with no ST elevation or depression. Differential diagnoses include viral syndrome, bronchitis, URI, pneumonia, PE, dissection-unlikely, CHF unlikely Differential Diagnosis Differential Diagnoses: The differential diagnosis associated with the presentation includes See above Lab Data [facility] Lab Attestation statement: I reviewed the patient's lab results. No leukocytosis, stable H&H, chemistry within normal limits. Slight hyperglycemia at 120, otherwise unremarkable. Troponin less than 2.7. Flu RSV, and COVID negative. 08/17/23 13:36 08/17/23 13:36 Labs: Lab Results 08/17/23 08/17/23 Range/Units 13:36 17:12 WBC 7.5 (4.8-10.8) X10*3/uL RBC 4.53 (4.20-5.50) X10*6/uL Hgb 13.6 (12.0-16.0) g/dl Hct 39.8 (37.0-47.0) % MCV 87.9 (80.0-98.0) fL MCH 30.0 (27.0-33.0) pg MCHC 34.2 (31.0-35.0) g/dl RDW 12.3 (11.0-16.0) % Plt Count 317 (160-400) X10*3/uL MPV 9.0 L (9.4-12.3) fL Immature Gran % (Auto) 0.4 (0.0-0.4) % Neut % (Auto) 72.8 (45-73) % Lymph % (Auto) 19.0 L (20-40) % [place] % (Auto) 6.2 (2-11) % Eos % (Auto) 1.3 (0-4) % Baso % (Auto) 0.3 (0-2) % Lymph # (Auto) 1.4 (1.2-4.9) X10*3/uL [place] # (Auto) 0.5 (0.1-1.2) X10*3/uL Eos # (Auto) 0.1 (0.0-0.4) X10*3/uL Baso # (Auto) 0.0 (0.0-0.2) X10*3/uL Abs Immat Gran (auto) 0.03 (0.00-0.03) X10*3/uL Absolute Neuts (auto) 5.5 (2.0-8.3) x10*3/uL Absolute Nucleated RBC 0.000 (0.0-0.012) X10*3/uL Nucleated RBC % (auto) 0.0 (0.0-0.2) /100WBC PT 12.1 (11.1-13.3) SEC INR 1.0 (0.9-1.1) Sodium 141 (135-145) mmol/L Potassium 4.1 (3.3-5.1) mmol/L Chloride 109 H (96-108) mmol/L Carbon Dioxide 25 (22-29) mmol/L Anion Gap 11 L (12-20) BUN 9 (9-16) mg/dL Creatinine 0.76 (0.5-1.4) mg/dL Estim Creat Clear Calc 109.2 Estimated GFR > 60 Random Glucose 120 H (60-115) mg/dL Calcium 9.9 (8.4-10.2) mg/dL Magnesium 1.8 (1.6-2.6) mg/dL Total Bilirubin 0.4 (0.0-1.0) mg/dL AST 15 (5-31) U/L ALT 12 (0-31) U/L Alkaline Phosphatase 63 (39-117) U/L Troponin I High Sens < 2.7 (<3.5-17.0) ng/L B-Natriuretic Peptide 30 (<100) pg/mL Total Protein 7.8 (6.5-8.0) g/dL Albumin 4.5 (3.5-5.0) g/dL Urine Color Yellow Urine Appearance Clear Urine pH 8.0 (5.0-9.0) Ur Specific [place] 1.010 (1.005-1.025) Urine Protein Negative (Neg-Trace) mg/dL Urine Glucose (UA) Negative (Negative) mg/dL Urine Ketones Negative (Negative) mg/dL Urine Blood Negative (Negative) Urine Nitrite Negative (Negative) Ur Leukocyte Esterase Negative (Negative) Urine Test NEGATIVE (NEGATIVE) Influenza Type A (PCR) NEGATIVE (Negative) Influenza Type B (PCR) NEGATIVE (Negative) RSV RNA Qual (PCR) NEGATIVE (Negative) SARS-CoV-2 RNA (RT-PCR) NEGATIVE (Negative) Independent Interpretation I performed an independent interpretation of an: EKG Interpretation: EKG normal sinus rhythm at a ventricular rate of 69 beats per minute, QT QTC 384/411, no ST elevation or depression. Radiology Impression Discussion of test interpretation with radiology: I have reviewed the radiologist's reading. Radiologist Impression: EXAMINATION: XR CHEST CLINICAL INFORMATION: Shortness of breath COMPARISON: None available. TECHNIQUE: PA view of the chest was obtained. FINDINGS: No significant abnormality is noted involving the heart, lungs, mediastinum, bony thorax or soft tissues. XR/XR chest 1V IMPRESSION: No acute disease. Dictated By: Yusuf Trujillo MD Critical Care Time Critical Care Time Critical Care Time: Yes Total Critical Care Time: 35 Attestation: I have personally provided critical care time exclusive of time spent on separately billable procedures. Time includes review of lab data, radiology results, discussion with consultants, and monitoring for potential decompensation. Intervention performed as documented. Discharge Plan Discharge Clinical Impression: Shortness of breath, Chest pain Patient Disposition: Home, Self-Care Instructions: Chest Pain (ED) Additional Instructions: You were seen in the emergency department to shortness for breath and chest pain. Your workup today was reassuring, your blood work was normal. Your urine does not appear to be infected. You tested negative for flu, RSV, and COVID. Your chest x-ray did not show a pneumonia. Your CT scan of your chest shows a borderline enlarged to your pulmonary artery which suggests pulmonary arterial hypertension - it is unclear if you have had this has, and I would like for you to follow-up with your primary care physician and Cardiology. You also have pulmonary nodules measuring up to 3 mm. You also have a small hiatal hernia. You also have evidence of a fatty liver. It is unclear what is causing you to have the symptoms, this may viral or inflammatory. Please take prednisone and use inhaler as prescribed. 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 If any new worsening symptoms occur including but not limited to severe chest pain, shortness of breath, please return for re-evaluation in Prescriptions: New prednisone 20 mg tablet 40 mg PO DAILY 5 Days Qty: 10 0RF albuterol sulfate 90 mcg/actuation HFA aerosol inhaler 2 puff inhalation 6XD PRN (Reason: shortness of breath or wheezing) Qty: 6.7 0RF No Action sucralfate 1 gram tablet 1 g PO BID Qty: 56 0RF clonidine HCl 0.1 mg tablet 0.1 mg PO BID Interventions: ED Discharge Assessment Last Done: 08/17/23 19:13 Discharge Date/Time: 08/17/23 19:14 Print Language: Stateless
[2023-08-17 13:42] LABS: MANUAL DIFF FLAG NO
[2023-08-17 13:44] LABS: Basophils Percent Auto 0.3 % (0-2); Eosinophils Absolute Auto 0.1 X10*3/uL (0.0-0.4); Eosinophils Percent Auto 1.3 % (0-4); Hematocrit 39.8 % (37.0-47.0); Hemoglobin 13.6 g/dl (12.0-16.0); Imm Gran Abs Auto 0.03 X10*3/uL (0.00-0.03); Imm Gran Pct Auto 0.4 % (0.0-0.4); Lymphocytes Absolute Auto 1.4 X10*3/uL (1.2-4.9); Mean Corpuscular HGB Conc 34.2 g/dl (31.0-35.0); Mean Corpuscular Volume 87.9 fL (80.0-98.0); Monocytes Absolute Auto 0.5 X10*3/uL (0.1-1.2); Monocytes Percent Auto 6.2 % (2-11); Neutrophils Absolute Auto 5.5 x10*3/uL (2.0-8.3); Neutrophils Percent Auto 72.8 % (45-73); Platelet Count 317 X10*3/uL (160-400); Red Blood Count 4.53 X10*6/uL (4.20-5.50); Red Cell Distribution Width 12.3 % (11.0-16.0); White Blood Count 7.5 X10*3/uL (4.8-10.8)
[2023-08-17 14:04] LABS: Alanine Aminotransferase 12 U/L (0-31); Albumin Level 4.5 g/dL (3.5-5.0); Alkaline Phosphatase 63 U/L (39-117); Anion Gap 11 (12-20); Aspartate Amino Transferase 15 U/L (5-31); Bilirubin Total 0.4 mg/dL (0.0-1.0); Blood Urea Nitrogen 9 mg/dL (9-16); Calcium 9.9 mg/dL (8.4-10.2); Carbon Dioxide 25 mmol/L (22-29); Chloride 109 mmol/L (96-108); Creatinine Clr Calc Pharmacy 109.2; Estimated Glomerular Filt Rate > 60; Glucose Random 120 mg/dL (60-115); Magnesium 1.8 mg/dL (1.6-2.6); Potassium 4.1 mmol/L (3.3-5.1); Sodium 141 mmol/L (135-145); Total Protein 7.8 g/dL (6.5-8.0)
[2023-08-17 14:12] LABS: Troponin-I High Sensitivity < 2.7 ng/L (<3.5-17.0)
[2023-08-17 14:26] LABS: Prothrombin Time 12.1 SEC (11.1-13.3)
[2023-08-17 14:49] LABS: Influenza A PCR NEGATIVE (Negative); Influenza B PCR NEGATIVE (Negative); Resp Syncy Virus RNA Qual PCR NEGATIVE (Negative); SARS COV2 PCR INHOUSE NEGATIVE (Negative)
[2023-08-17 16:21] VITALS: BP 134/70; PULSE 70; RESP 20; O2SAT 99
[2023-08-17] MEDS: iohexoL 350 MG/ML 100 ML INFUS..BTL IV (16:37)
[2023-08-17 16:43] LABS: B Type Natriuretic Peptide 30 pg/mL (<100)
[2023-08-17 17:20] LABS: Appearance Urine Clear; Color Urine Yellow; Glucose Urine UA Negative (Negative); Leukocyte Esterase Urine Negative (Negative); Nitrite Urine Negative (Negative); Urine Blood Negative (Negative); Urine Ketones Negative (Negative); Urine Protein Negative (Neg-Trace)
[2023-08-17 17:21] LABS: UPreg QC Valid YES; Urine Pregnancy NEGATIVE (NEGATIVE)
[2023-08-17 19:13] VITALS: BP 130/70; PULSE 74; RESP 18; TEMP 36.9; O2SAT 98
== END 2023-08-17 19:14 | disposition home or self-care (01) ==
PROVIDERS: Physician Assistant; Physician Assistant Medical; Emergency Provider Emergency Medicine; PCP Family Medicine
DX: R06.02 Shortness of breath (principal); R07.9 Chest pain, unspecified; I71.21 Aneurysm of the ascending aorta, without rupture
CPT/HCPCS: 0241U; 36415; 71045; 71275; 80053; 81003; 81025; 83735; 83880; 84484; 85025; 85610; 93005; 99284; Q9967

== ENCOUNTER → 2023-08-17 13:16 | Outpatient (BNV) | payer OTHER, SELFPAY | PROVIDERS: Emergency Provider Emergency Medicine; PCP Family Medicine; Visit Provider Internal Medicine | DX: R06.02 Shortness of breath (principal) | CPT/HCPCS: 93010 ==

== ENCOUNTER → 2023-09-08 09:04 | Outpatient (REF) | payer OTHER, SELFPAY ==
--- NOTE | 2023-09-08 09:08 | CA_ITS ---
Transthoracic Echocardiogram Patient (Last, First, Middle): Stephany Sandoval, Gender: Female Date of : 1990 Age: 33 Procedure Date: 09/08/2023 Procedure Type: Transthoracic Echocardiogram Location: OP Height: 157.48 cm Weight: 89.36 kg BSA: 1.90 m2 Heart Rate: 64 bpm BP: 100 / 70 mmHg Promotions Team Leader: ABBY Referring MD: Tramaine Mcnair MD Symptoms: I77.810 - Thoracic aortic ectasia Study Quality: Adequate, Limited by order ECG Rhythm: Sinus Conclusions: - There is mild dilatation of the ascending aorta measuring 3.80 cm. Findings Left Ventricle Normal left ventricular size and systolic function. The visually estimated ejection fraction is between 55-60%. Great Vessels There is mild dilatation of the ascending aorta measuring 3.80 cm. Prior Study Comparison No significant change compared to prior study dated: 06/13/2023. Measurements 2D Linear Measurements LVOT Diam: 2.00 3.0+(-)1.3 cm LVOT LVOT Pk Mando: 1.33 LVOT Mn Mando: 0.88 LVOT VTI: 0.29 LVOT Pk Grad: 7.00 LVOT Mn Grad: 4.00 LVOT Diam: 2.00 LVOT Area: 3.14 Great Vessels Aorta Ao Asc: 3.80 2.1-3.4 cm Ao Arch: 3.00 Updated in Other Vendor System with Status of Final Luis Enrique Asencio MD electronically signed on 09/09/2023 11:05:18 PM with status of Final
== END ==
LOC: HO.CARD 09:04
PROVIDERS: PCP Family Medicine; Visit Provider Internal Medicine
DX: I77.810 Thoracic aortic ectasia (principal)
CPT/HCPCS: 93308

== ENCOUNTER → 2023-09-08 09:08 | Outpatient (BNV) | payer OTHER, SELFPAY | PROVIDERS: PCP Family Medicine; Visit Provider Internal Medicine Cardiovascular Disease | DX: I77.810 Thoracic aortic ectasia (principal) | CPT/HCPCS: 93308 ==

== ENCOUNTER 2023-09-26 08:59 | Outpatient (AMB) | payer OTHER, SELFPAY ==
--- NOTE | 2023-09-26 09:18 | MHC.OFFVIS ---
Vital Signs 09/26/23 09:19 Height 5 ft 2 in Weight 202 lb 4 oz BMI 37.0 BP 100/72 Blood Pressure Location Rt brachial Position Sitting Pulse 69 Pulse Source Pulse Oximeter Pulse Oximetry (%) 98 Oxygen Delivery Method Room Air Intake Visit Reasons: Shortness of breath Allergies No Known Allergies Allergy (Verified 09/26/23 09:21) HPI HPI Shortness of breath: Details: Stephany is a pleasant 33 year old female, former minimal tobacco smoker with less than 5 pack year history, history of vaping nicotine x 8 years, recently quit, and mild dilatation of ascending aorta. She was referred after evaluation at [facility] on 08/16 for three day history of worsening dyspnea with associated chest discomfort and diaphoresis, denying any cough, wheezing or chest tightness. This was the 1st occurrence of these symptoms. CTA performed which revealed multiple pulmonary nodules less than 3 mm and question of pulmonary hypertension due to borderline enlargement of the main pulmonary artery. Recent echo unremarkable, LVEF 60% and RVSP 16. She reports increased bilateral lower extremity edema x 1 month. Denies any orthopnea. She was treated with prednisone with mild improvements and given a prescription of albuterol, which she used consistently initially with minimal effect. She continues to report dyspnea at rest and inability to fully inspire at times. She denies cough, wheezing or chest tightness. She denies any prior history of asthma. She denies any pertinent family history. She denies any seasonal allergies. She denies any occupational exposures. [facility] Medical History Anxiety Surgical History History of dilation and curettage Hx of inguinal hernia surgery Family History Mother High blood pressure High cholesterol Atrial fibrillation Father Asthma Maternal Grandmother High blood pressure Maternal Grandfather High blood pressure Alcoholism Family/Other Asthma High blood pressure Brother CHF (congestive heart failure) Social History (Updated 09/26/23 @ 09:21 by Renu Galvin CMA) Housing: House Patient Tobacco Use Status: Former Tobacco user e-Cigarette/Vaping Use: Former Use Second Hand Smoke Exposure: No service: No Current occupational status: employed Current occupation: [employer] Cognitive needs: No Hearing needs: No Vision needs: No Female Reproductive History Menstrual Age of Menarche: 11 Review of Systems Const Denies chills, Denies excessive sweating, Denies fever(s), Denies headache(s) and Denies night sweats Eyes Denies dry eyes, Denies irritation and Denies itchy eyes ENT Reports Normal hearing present, Denies headache(s), Denies nasal congestion, Denies nasal discharge, Denies post nasal drip and Denies sore throat Card Denies chest pain, Denies chest pain at rest, Denies chest pain with activity, Denies claudication, Denies leg edema, Denies orthopnea and Denies paroxysmal nocturnal dyspnea Resp Denies chest congestion, Denies cough, Denies excessive phlegm production, Denies pain on inspiration, Denies pain with cough, Denies stridor and Denies wheezing Musc Denies myalgias Neuro Reports Normal hearing present and Denies headache(s) Endo Denies excessive sweating Smith/Lymph Denies lymphadenopathy Aller/Immun Denies itchy eyes, Denies seasonal rhinorrhea and Denies wheezing Physical Exam Vital Signs: Last Vital Signs Pulse 69 09/26/23 09:19 BP 100/72 09/26/23 09:19 Pulse Ox 98 09/26/23 09:19 Oxygen Delivery Method Room Air 09/26/23 09:19 BMI result Body Mass Index 37.0 Const General: cooperative, healthy appearing, comfortable, no acute distress, well developed and alert Nutritional Appearance: obese Orientation/consciousness: patient oriented x3 Limitations: no limitations HEENT Head: Yes normal to inspection, Yes normocephalic and Yes atraumatic Ears: hearing grossly normal bilaterally and external ears normal Eyes General: appearance normal, both eyes and all related structures Eyelids: Yes eyelids normal Sclerae: sclerae normal EOM: EOMs intact bilaterally Neck Neck: Yes normal visual inspection and Yes no lymphadenopathy Lymphatic: no lymphadenopathy noted Chest Chest palpation & inspection: normal inspection of the chest Resp Effort & Inspection: normal respiratory effort, able to speak in complete sentences, no audible wheezes, no cough, no stridor, not tachypneic, no tripod positioning and no use of accessory muscles Auscultation: clear to auscultation bilaterally Cardio Jugular venous distension: no JVD Rate: regular rate Rhythm: regular rhythm Skin Other: warm, dry General skin exam: no rashes or lesions noted Neuro General: patient oriented x3 Cranial nerves: Yes Normal hearing present Cognition (Neuro): normal cognition Gait exam (Neuro): Normal gait present Extrem General: Yes normal to inspection, Yes capillary refill normal, Yes no clubbing, cyanosis or edema and Yes no pedal edema Psych Appearance: grossly normal and well kempt Speech and movement: Normal speech and movement present and Clear speech present Affect: normal affect Attitude: cooperative Thought process: Normal thought process present Thought content: Normal thought content present Insight: Good insight present (Psych) Judgement: Good judgement present (Psych) Results Reviewed Results Reviewed: [address] [address] [address] Scan Report Signed Patient: Stephany Sandoval MR#: [id number] : 1990 Acct:[id number] Age/Sex: 33 / F ADM Date: 08/17/23 Loc: .ED Attending Dr: Ordering Physician: Edna Sawyer Date of Service: 08/17/23 Procedure(s): CT angio chest PE protocol Accession Number(s): [id number] cc: Quentin Quarles MD; Edna Sawyer~ EXAMINATION: CT ANGIOGRAM OF THE CHEST WITH AND WITHOUT CONTRAST (CT PULMONARY ANGIOGRAM FOR PE) CLINICAL INFORMATION: Reason for Exam SOB, CP, hx of ascending aorta dilatation COMPARISON: None available. TECHNIQUE: Prior to contrast administration, noncontrast localization images were obtained. Subsequently, multidetector volumetric imaging was performed from the thoracic inlet to below the diaphragms following the administration of 80 mL Omnipaque 350 intravenous contrast. No contrast reaction reported Sagittal, coronal, and MIP oblique sagittal reformatted images were obtained on the CT workstation, uploaded to PACS, and reviewed. This CT examination was performed using dose optimization techniques as appropriate, variously including the following: *Automated exposure control *Adjustment of mA and/or kV according to patient size (this includes techniques or standardized protocols for targeted exams where dose is matched to indication/reason for exam; i.e. extremities or head) *Use of iterative reconstruction technique Total exam dose-length product 266 mGy-cm FINDINGS: QUALITY OF STUDY/CONTRAST BOLUS: Satisfactory. PULMONARY ARTERIES: No pulmonary emboli. Borderline enlargement main pulmonary artery suggesting elements of pulmonary arterial hypertension. THORACIC AORTA: No aneurysm. LUNG/PLEURA: Bilateral lung apices are not included in [id number]-[id number] limiting evaluation. 2 mm nodular focus along the anterolateral aspect of the right middle lobe (series 7, image 193). 3 mm pleural-based nodular focus along the posterior lateral aspect of the right lower lobe (series 7, image 175). 3 mm nodular focus along the posterior aspect of the left upper lobe abutting the left major fissure (series 7, image 112). Central airways are patent. No pneumothorax. No large pleural effusion. Bibasilar atelectasis. MEDIASTINUM: Heart is not enlarged. No pericardial effusion. No coronary artery calcifications are noted. No enlarged lymph nodes per size criteria. No evidence of septal bowing or right heart strain. CHEST WALL/AXILLA: No axillary or internal mammary lymphadenopathy. OSSEOUS STRUCTURES: Multilevel degenerative changes of the thoracolumbar spine. UPPER ABDOMEN: Small hiatal hernia. Decreased hepatic attenuation suggesting hepatic steatosis. No reflux of contrast into the hepatic veins to suggest elevated right heart pressures. CT/CT angio chest PE protocol IMPRESSION: 1. No pulmonary emboli. 2. Borderline enlargement main pulmonary artery suggesting elements of pulmonary arterial hypertension. 3. Multiple bilateral pulmonary nodules the largest measuring up to 3 mm. Follow-up as per Fleischner criteria 4. Small hiatal hernia. 5. Decreased hepatic attenuation suggesting hepatic steatosis. According to the UPDATED 2017 Fleischner Society recommendations, the advised follow-up imaging for solid nodules < 6 mm is: HIGH RISK PATIENT: Optional CT at 12 months. Dictated By: Leda Scott MD Signed By: <Electronically signed by Leda Scott MD in OV> 08/17/23 1830 DD/ 1641 TD/TT: Journalism Intern: Assessment & Plan Assessment & Plan (1) Dyspnea: Code(s): R06.00 - Dyspnea, unspecified Category: Medical (2) Multiple pulmonary nodules: Code(s): R91.8 - Other nonspecific abnormal finding of lung field Category: Medical Plan Unclear etiology of dyspnea, will send for PFT to evaluate. Will consider CPET if normal. On CTA there is question of pulmonary hypertension due to borderline enlargement of main pulmonary artery however recent echo revealed RVSP of 16, likelihood of pulmonary hypertension at this time is low. Unremarkable respiratory exam today and no bilateral lower extremity edema noted. Discuss trialing a daily inhaler however will hold off until PFT complete. She is aware to call the office if symptoms change. CTA revealed multiple pulmonary nodules less than 3 mm in size, will send for repeat chest CT in 1 year to assess for stability. All questions were answered and patient is in agreement of plan. Will follow-up to review PFT results, or sooner if needed. Orders: Orders CT chest wo IV con 10 Months R91.8 - Other nonspecific abnormal finding of lung field PFT pulmonary function test Today R06.00 - Dyspnea, unspecified Coding Level of Care Code New Pt Level 4 (86476) Diagnoses Dyspnea R06.00 Multiple pulmonary nodules R91.8
[2023-09-26 09:19] VITALS: BP 100/72; PULSE 69; O2SAT 98; BMI 37.0
== END 2023-09-26 12:01 | disposition home or self-care (01) ==
PROVIDERS: PCP Family Medicine; Referring Provider Family Medicine; Visit Provider Nurse Practitioner Family
DX: R06.00 Dyspnea, unspecified (principal); R91.8 Other nonspecific abnormal finding of lung field
CPT/HCPCS: 99204

== ENCOUNTER → 2023-09-26 08:59 | Outpatient (BNVA) | payer OTHER, SELFPAY | PROVIDERS: PCP Family Medicine; Referring Provider Family Medicine; Visit Provider Nurse Practitioner Family ==

== ENCOUNTER 2023-10-19 13:37 | Outpatient (AMB) | payer OTHER, SELFPAY ==
--- NOTE | 2023-10-19 13:48 | A.OFFPC_ITS ---
Vital Signs 10/19/23 13:55 Height 5 ft 2 in Weight 199 lb 8 oz BMI 36.5 BP 100/86 Blood Pressure Location Lt brachial Position Sitting Respiration 16 Pulse 89 Pulse Source Pulse Oximeter Temp 98.6 F Temp Source Oral Pulse Oximetry (%) 98 Oxygen Delivery Method Room Air Intake Visit Reasons: CPE with f/u labs and health maint. Intake Note: CPE, follow up of previous treatment w/ pulmonary and cardiology, and to discus weight loss Is last menstrual period known: Yes Last menstrual period: 10/18/23 Post menopausal: No Patient : No Allergies No Known Allergies Allergy (Verified 10/19/23 13:49) Medication List - Last Reconciled 10/19/23 by Cami Jain PA-C albuterol sulfate 90 mcg/actuation 2 puffs inhalation 6XD PRN clonidine HCl 0.1 mg PO BID fluticasone furoate 100 mcg/actuation (Arnuity Ellipta) 1 inh inhalation DAILY inhalational spacing device (Aerochamber MV spacer) As directed sucralfate 1 g PO BID Tobacco use date assessed: 10/19/23 Dental Screening Dental Screen Date: 10/19/23 Did you have a dental visit in the last 12 months?: Yes Did you have a dental problem in the last 6 months where you did not have access to dental care?: No Was dental information given to patient?: Patient has dentist HPI CPE with f/u labs and health maint. HPI Details Patient is a 33-year-old female who presents today for a physical exam. She normally sees Dr. Quarles. She has a significant past medical history of ascending aorta dilatation, multiple pulmonary nodules, questionable pulmonary hypertension, GERD , fatty liver, history of Mcgee's palsy and anxiety. General- She states she has a hx of obesity and has tried hard to lose weight and wants go on wegovy. She has tried low carb, calorie restriction diets, intermittent fasting and has found that she plateaus. She states she has never been able to lose more than 10 lbs with diet and exercise. Her fam members are on wegovy and tolerate well. CV: Blood pressure today in the office is. She has seen Cardiology and her last echo was in August. No significant change from prior echo. PULM: Recently saw PULM last month for her pulmonary nodules, shortness a breath with exertion and possible pulmonary hypertension. She has PFTs scheduled and a repeat chest CT. It is felt that the pulmonary hypertension is less likely. She does have a history of tobacco use and vaping. She states sob is improved. Psych: She is on clonidine prn. 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 and booked for [facility] Medical History Anxiety Surgical History History of dilation and curettage Hx of inguinal hernia surgery Family History (Updated 10/19/23 @ 13:54 by Hanna Parnell) Mother High blood pressure High cholesterol Atrial fibrillation Father Asthma Maternal Grandmother High blood pressure Maternal Grandfather High blood pressure Alcoholism Family/Other Asthma High blood pressure Brother CHF (congestive heart failure) Social History (Updated 10/19/23 @ 13:53 by Hanna Parnell) Housing: House Patient Tobacco Use Status: Former Tobacco user e-Cigarette/Vaping Use: Former Use Second Hand Smoke Exposure: No Use of substances other than those prescribed or required for medical reasons: No Patient : No service: No Current occupational status: employed Current occupation: [employer] Current occupational exposures/hazards: No Cognitive needs: No Hearing needs: No Vision needs: No Female Reproductive History Menstrual Age of Menarche: 11 Date of last menstrual period: 10/18/23 Questionnaire PHQ-9 Over the last 2 weeks, how often have you been bothered by any of the following problems? 1. Little interest or pleasure in doing things: not at all 2. Feeling down, depressed, or hopeless: not at all 3. Trouble falling or staying asleep, or sleeping too much: not at all 4. Feeling tired or having little energy: several days 5. Poor appetite or overeating: not at all 6. Feeling bad about yourself - or that you are a failure or have let yourself or your family down: not at all 7. Trouble concentrating on things, such as reading the newspaper or watching television: not at all 8. Moving or speaking so slowly that other people could have noticed. Or the opposite - being so fidgety or restless that you have been moving around a lot more than usual: not at all 9. Thoughts that you would be better off or of hurting yourself in some way: not at all Total score: 1 Depression Screening Interpretation: Negative Depression Screening Done: Yes 49704 - PHQ-9 Billing: Yes Source: Developed by Drs. Nhan Stephens, Merry Uribe, Rodney Edge and colleagues, with an educational yenni from [employer]. Thrive Questionnaire Date Thrive assessed: 10/19/23 What is your living situation today?: I have a steady place to live Within the past 12 months, did the food you bought not last and you didn't have the money to get more?: Never true Within the past 12 months, did you worry whether your food would run out before you got money to buy more?: Never true Do you have trouble paying for medicines?: No Do you have trouble getting transportation to medical appointments?: No Do you have trouble paying your heating and electricity bill?: No Do you have trouble taking care of your child, family member or friend?: No Do you have trouble with day-to-day activities such as bathing, preparing meals, shopping, managing finances, etc.?: No Are you currently unemployed and looking for a job?: No Are you interested in more education?: No Please select the resources that you would like help with: None Currently or been in a relationship where the following occur: No concerns reported THRIVE Score: 0 AUDIT C Alcohol Use Questionnaire (AUDIT-C) 1. How often do you have a drink containing alcohol?: Never 3. How often do you have six or more drinks on one occasion?: Never Total Score: 0 Score Reviewed/Action Taken: Yes GRAY-7 AMB Questionnaire GRAY-7 Date GRAY - 7 assessed: 10/19/23 Feeling nervous, anxious, or on edge: 1 = Several days Not being able to stop or control worryin = Not at all Worrying too much about different things: 0 = Not at all Trouble relaxin = Several days Being so restless that it is hard to sit still: 0 = Not at all Becoming easily annoyed or irritable: 0 = Not at all Feeling afraid as if something awful might happen: 0 = Not at all Total GRAY-7 score (0-4 normal; 5-9 mild; 10-14 moderate; 15-21 severe): 2 Source: Developed by Drs. Nhan Stephens, Merry Uribe, Rodney Edge and colleagues, with an educational yenni from [employer]. GRAY-7 Assessment Billing GRAY-7 Assessment Tool: GRAY-7 Assessment 21764 Physical exam (Primary Care) Vital Signs: Last Vital Signs Temp 98.6 F 10/19/23 13:55 Pulse 89 10/19/23 13:55 Resp 16 10/19/23 13:55 BP 100/86 10/19/23 13:55 Pulse Ox 89 L 10/19/23 13:55 Oxygen Delivery Method Room Air 10/19/23 13:55 BMI result Body Mass Index 36.5 Tobacco/Smoking Status: Tobacco use Status Tobacco use date assessed 10/19/23 10/19/23 13:54 Patient Tobacco Use Status Former Tobacco user 10/19/23 13:54 e-Cigarette/Vaping Use Former Use 10/19/23 13:54 PHQ-9: PHQ-9 Score PHQ-9: Total score 1 10/19/23 13:54 Depression Screening Interpretation: Negative Thrive Assessment: Date of Thrive Assessment Date Thrive assessed 10/19/23 10/19/23 13:54 Currently or been in a relationship where the following occur: No concerns reported Const Orientation/consciousness: patient oriented x3 HENMT Ears: hearing grossly normal bilaterally and TM's normal bilaterally General nose exam: No nasal polyps present Face and sinus: Yes sinuses nontender Mouth: Normal oral and palatal mucosa present Eyes Pupils: Equal, round and reactive pupils present EOM: EOMs intact bilaterally Neck Neck: Yes full ROM and Yes no lymphadenopathy Thyroid: Thyroid normal Chest Chest palpation & inspection: normal inspection of the chest Resp Auscultation: clear to auscultation bilaterally Cardio Rate: regular rate Rhythm: regular rhythm Heart sounds: S1 normal heart sound present and S2 normal heart sound present Peripheral pulses: Peripheral pulses 2+ throughout GI Other: Soft, nontender Auscultation: normal bowel sounds Rectal Exam - Female: deferred General: Yes no CVA tenderness Back/Spine/Pelvis Other: Nontender Back: no CVA tenderness Skin General skin exam: no rashes or lesions noted Neuro General: patient oriented x3, gait normal, CN's II-XI intact bilaterally and deep tendon reflexes 2+ bilaterally Cranial nerves: Yes Equal, round and reactive pupils present Motor exam (neuro): 5/5 motor strength present throughout Sensory Exam: double simultaneous stimulation for sensation normal Coordination: [id number]-[id number] test normal and Romberg test negative Extrem General: Yes normal to inspection and Yes full ROM Psych Affect: normal affect Attitude: cooperative Thought process: Normal thought process present Thought content: Normal thought content present Insight: Good insight present (Psych) Judgement: Good judgement present (Psych) Results Reviewed Results Reviewed: Laboratory Tests 09/26/22 08/17/23 11:18 13:36 WBC 7.5 RBC 4.53 Hgb 13.6 Hct 39.8 Plt Count 317 Sodium 141 Potassium 4.1 Carbon Dioxide 25 Anion Gap 11 L BUN 9 Creatinine 0.76 Estimated GFR > 60 Random Glucose 120 H AST 15 ALT 12 Triglycerides 91 Cholesterol 201 LDL Cholesterol, Calc [address]/CT angio chest PE protocol IMPRESSION: 1. No pulmonary emboli. 2. Borderline enlargement main pulmonary artery suggesting elements of pulmonary arterial hypertension. 3. Multiple bilateral pulmonary nodules the largest measuring up to 3 mm. Follow-up as per Fleischner criteria 4. Small hiatal hernia. 5. Decreased hepatic attenuation suggesting hepatic steatosis. Conclusions: - There is mild dilatation of the ascending aorta measuring 3.80 cm. Findings Left Ventricle Normal left ventricular size and systolic function. The visually estimated ejection fraction is between 55-60%. Great Vessels There is mild dilatation of the ascending aorta measuring 3.80 cm. Prior Study Comparison No significant change compared to prior study dated: 06/13/2023. Assessment and Plan Assessment & Plan (1) Routine general medical examination at a health care facility: Code(s): Z00.00 - Encounter for general adult medical examination without abnormal findings Plan: reviewed (2) IFG (impaired fasting glucose): Code(s): R73.01 - Impaired fasting glucose Plan: glucose at er was elevated. will check a1c (3) Multiple pulmonary nodules: Code(s): R91.8 - Other nonspecific abnormal finding of lung field Plan: continue follow up with pulm. sx resolved with d/c vaping. (4) Obesity (BMI 30.0-34.9): Code(s): E66.9 - Obesity, unspecified Plan: will start wegovy. discussed risks/benefits and adverse effects. pt understands and agrees with the plan. Orders: Orders Hemoglobin A1c Today R73.01 - Impaired fasting glucose, R91.8 - Other nons pecific abnormal finding of lung field, Z00.00 - Encounter for general adult medical examination without abnormal findings Complete Blood Count Auto Diff Today R73.01 - Impaired fasting glucose, R91.8 - Other nonspecific abnormal finding of lung field, Z00.00 - Encounter for general adult medical examination without abnormal findings Comprehensive [place]. Panel Fast Today R73.01 - Impaired fasting glucose, R91.8 - Other nonspecific abnormal finding of lung field, Z00.00 - Encounter for general adult medical examination without abnormal findings Lipid Panel Today R73.01 - Impaired fasting glucose, R91.8 - Other nonspecific abnormal finding of lung field, Z00.00 - Encounter for general adult medical examination without abnormal findings TSH reflex Free T4 Today R73.01 - Impaired fasting glucose, R91.8 - Other nonspecific abnormal finding of lung field, Z00.00 - Encounter for general adult medical examination without abnormal findings Medications: New semaglutide (weight loss) (Wegovy) administer weeks 1 through 4 of therapy 0.25 mg (0.5 mL) subcut QWEEK 2 mL 0RF Coding Level of Care Code Est Pt Prev Care 18-39y(02226) Diagnoses Routine general medical examination at a health care facility Z00.00 IFG (impaired fasting glucose) R73.01 Multiple pulmonary nodules R91.8 Obesity (BMI 30.0-34.9) E66.9 Additional Codes GRAY-7 Assessment Billing - GRAY-7 Assessment Tool: GRAY-7 Assessment 55019 ([id number])
[2023-10-19 13:55] VITALS: BP 100/86; PULSE 89; RESP 16; TEMP 37; O2SAT 98; BMI 36.5
== END 2023-10-19 14:35 | disposition home or self-care (01) ==
PROVIDERS: PCP Family Medicine; Visit Provider Physician Assistant
DX: Z00.00 Encounter for general adult medical examination without abnormal findings (principal); R73.01 Impaired fasting glucose; E66.9 Obesity, unspecified; Z68.36 Body mass index [BMI] 36.0-36.9, adult; R91.8 Other nonspecific abnormal finding of lung field
CPT/HCPCS: 99395

== ENCOUNTER 2024-02-19 09:16 | Emergency (ER) | payer OTHER, SELFPAY ==
--- NOTE | ~2024-02-19 | CT_ITS ---
EXAMINATION: CT ANGIOGRAM OF THE CHEST WITHOUT AND WITH CONTRAST CLINICAL INFORMATION: Chest pain COMPARISON: CTA from 08/17/2023 TECHNIQUE: Multidetector volumetric CT imaging of the chest was performed before and after the administration of 70 mL of Omnipaque 350 intravenous contrast without immediate adverse reactions. 3D POSTPROCESSING: Multiple 3-D angiographic images were processed from the initial data set by the lead neurodiagnostic technologist at the modality workstation under concurrent physician supervision. DOSE LOWERING TECHNIQUES: This CT examination was performed using dose optimization techniques as appropriate, variously including the following: - Automated exposure control - Adjustment of mA and/or kV according to patient size (this includes techniques or standardized protocols for targeted exams where dose is matched to indication/reason for exam; i.e. extremities or head) - Use of iterative reconstruction technique DLP: 325 mGy-cm. FINDINGS: VASCULAR: ASCENDING AORTA: Motion artifact is present. Ascending thoracic aorta is grossly normal in caliber and widely patent without evidence of aneurysm or dissection AORTIC ARCH: Normal in caliber and patent. No evidence of aneurysm or dissection. Three-vessel arch anatomy. The great vessels are patent. DESCENDING AORTA: Normal in caliber and patent. No evidence of aneurysm or dissection. ABDOMINAL AORTA: Visualized proximal abdominal aorta is normal in caliber. PULMONARY ARTERIES: Examination not tailored to the pulmonary arteries. No evidence of acute pulmonary embolus NONVASCULAR: LUNGS: The lungs are clear with no evidence of inflammation or nodules. MEDIASTINUM: The mediastinum is normal. CORONARY ARTERY CALCIFICATION: None visualized on this study. PLEURA: There is no pleural effusion. No pleural mass or thickening. ABDOMINAL VISCERA: Unremarkable OSSEOUS STRUCTURES: Unremarkable. CT/CT angio chest aorta IMPRESSION: No acute process. Normal appearance of the thoracic aorta. No evidence of aneurysm or dissection. Electronically signed by: Stu Morrissey MD 02/19/2024 01:24 PM [facility]
--- NOTE | ~2024-02-19 | XR_ITS ---
EXAMINATION: XR CHEST CLINICAL INFORMATION: CP COMPARISON: CT images of chest PE protocol, chest August 17, 2023 TECHNIQUE: 2 views of the chest were obtained. FINDINGS: There is no gross pneumothorax. Heart size is normal. No pleural effusion. No new focal consolidation. Mild degenerative changes in the thoracic spine. XR/XR chest 2V IMPRESSION: No new focal consolidation. This study was presented today February 19, 2024 for interpretation. Stat results provided at this time as requested by referring provider. Electronically signed by: Melania Estes MD 02/19/2024 12:53 PM [facility]
[2024-02-19 09:16] VITALS: BP 125/82; PULSE 84; RESP 18; TEMP 36.6; O2SAT 98; BMI 35.1
--- NOTE | 2024-02-19 09:19 | ECG_ITS ---
Test Reason : cp sob Blood Pressure : / mmHG Vent. Rate : 087 BPM Atrial Rate : 087 BPM P-R Int : 146 ms QRS Dur : 086 ms QT Int : 362 ms P-R-T Axes : 048 015 027 degrees QTc Int : 435 ms Normal sinus rhythm Nonspecific T wave changes Abnormal ECG When compared with ECG of 17-AUG-2023 13:28, Nonspecific T wave changes Referred By: Generic ED Physician Electronically Signed By:Luis Enrique Asencio
[2024-02-19 09:33] LABS: MANUAL DIFF FLAG NO
[2024-02-19 09:36] LABS: Basophils Percent Auto 0.5 % (0-2); Eosinophils Absolute Auto 0.4 X10*3/uL (0.0-0.4); Eosinophils Percent Auto 4.4 % (0-4); Hematocrit 39.7 % (37.0-47.0); Hemoglobin 13.8 g/dl (12.0-16.0); Imm Gran Abs Auto 0.03 X10*3/uL (0.00-0.03); Imm Gran Pct Auto 0.4 % (0.0-0.4); Lymphocytes Absolute Auto 1.3 X10*3/uL (1.2-4.9); Lymphocytes Percent Auto 16.8 % (20-40); Mean Corpuscular HGB Conc 34.8 g/dl (31.0-35.0); Mean Corpuscular Hemoglobin 29.8 pg (27.0-33.0); Mean Corpuscular Volume 85.7 fL (80.0-98.0); Mean Platelet Volume 8.9 fL (9.4-12.3); Monocytes Absolute Auto 0.6 X10*3/uL (0.1-1.2); Monocytes Percent Auto 7.5 % (2-11); Neutrophils Absolute Auto 5.6 x10*3/uL (2.0-8.3); Neutrophils Percent Auto 70.4 % (45-73); Platelet Count 342 X10*3/uL (160-400); Red Blood Count 4.63 X10*6/uL (4.20-5.50); Red Cell Distribution Width 12.4 % (11.0-16.0)
[2024-02-19 09:54] LABS: Anion Gap 12 (12-20); Blood Urea Nitrogen 6 mg/dL (9-16); Calcium 9.9 mg/dL (8.4-10.2); Carbon Dioxide 27 mmol/L (22-29); Chloride 106 mmol/L (96-108); Creatinine Clr Calc Pharmacy 102.8; Estimated Glomerular Filt Rate > 60; Glucose Random 104 mg/dL (60-115); Potassium 3.9 mmol/L (3.3-5.1); Sodium 141 mmol/L (135-145)
[2024-02-19 10:03] LABS: Troponin-I High Sensitivity < 2.7 ng/L (<3.5-17.0)
--- NOTE | 2024-02-19 10:32 | ED_ITS ---
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 Pain is described as a constant dull ache in the center and left side of the chest. She also reports intermittent sweating and lightheadedness. Patient sees a edge kitter outpatient for continued follow up on her previous palpitations, murmur, and aortic dilatation. She denies fever, chills, or shortness of breath. Denies numbness and tingling of extremities, headache, cough, or generalized weakness. MD complaint: chest discomfort Pertinent past history: other (mild ascending aorta dilation ) Onset (ago): week(s) (1) Timing of current episode: constant Pain location: left chest Pain radiation: left shoulder Quality: aching and dull Relieving factors: nothing Associated symptoms: diaphoresis (intermittent ) and other (lightheadedness; intermittent ) Related Data On Oral Contraceptives: No Home Medications ?Medication ?Instructions ?Recorded ?Confirmed clonidine HCl 0.1 mg tablet 0.1 mg PO BID 01/13/23 10/19/23 Previous Rx's ?Medication ?Instructions ?Recorded sucralfate 1 gram tablet 1 g PO BID #56 tabs 01/24/23 albuterol sulfate 90 mcg/actuation 2 puff inhalation 6XD PRN 08/17/23 aerosol inhaler shortness of breath or wheezing #6.7 grams fluticasone furoate 100 1 inh inhalation DAILY #30 ea 10/03/23 mcg/actuation blister powder for inhalation (Arnuity Ellipta) inhalational spacing device #10 ea 10/03/23 (Aerochamber MV spacer) semaglutide (weight loss) 0.25 0.25 mg (0.5 mL) subcut QWEEK #2 mL 10/19/23 mg/0.5 mL subcutaneous pen injector (Wegovy) Allergies Allergy/AdvReac Type Severity Reaction Status Date / Time No Known Allergies Allergy Verified 02/19/24 09:19 Review of Systems 2 Constitutional: Constitutional: Reports no additional constitutional complaints, Denies chills, Reports excessive sweating (intermittent ), Denies fever(s), Denies headache(s) and Denies night sweats Eyes: Eyes: Reports no additional eye complaints, Denies blurry vision, Denies change in vision, Denies diplopia, Denies eye discharge, Denies loss of vision and Denies eye pain ENT: Reports as per HPI, Reports Normal hearing present, Denies dizziness and Denies headache(s) Cardiovascular: Cardiovascular: Reports no additional cardiovascular complaints, Reports chest pain, Denies epigastric discomfort, Reports diaphoresis (intermittent ), Denies leg edema, Reports lightheadedness (intermittent ), Denies Loss of Consciousness and Denies dyspnea Respiratory: Respiratory: Reports as per HPI, Reports no additional respiratory complaints, Denies chest congestion, Denies cough, Denies hemoptysis, Denies pain with cough and Denies dyspnea Gastrointestinal: Gastrointestinal: Reports as per HPI, Reports no additional gastrointestinal complaints, Denies abdominal pain, Denies melena, Denies hematochezia, Denies change in bowel habits and Denies change in stool character Genitourinary: Genitourinary: Denies hematuria, Denies urinary frequency, Denies dysuria, Denies urinary incontinence, Denies urinary hesitancy and Denies urinary urgency Musculoskeletal: Musculoskeletal: Reports no additional musculoskeletal complaints, Denies numbness and Denies tingling Integumentary/Breasts: Skin/Breast: Reports system reviewed and no additional complaints, except as docu and Reports as per HPI Neurologic: Reports as per HPI, Reports Normal hearing present, Denies dizziness, Denies headache(s), Denies loss of vision, Denies numbness and Denies tingling Psychiatric: Psychiatric: Reports no additional psychiatric complaints and Reports as per HPI Endocrine: Endocrine: Reports no additional endocrine complaints, Reports as per HPI and Reports excessive sweating (intermittent ) Hematologic/Lymphatic: Hematologic/Lymphatic: Reports no additional hematologic/lymphatic complaints Allergic/Immunologic: Allergic/Immunologic: Reports no additional allergic/immunologic complaints PMFSH Past Medical History Attestation statement: The following information was validated with the patient. Source: old records reviewed and nursing notes reviewed Medical History Adult general medical exam Laboratory exam ordered as part of routine general medical examination Lightheadedness Dyspnea Well woman exam with routine gynecological exam Numbness and tingling Screening for cervical cancer Nausea & vomiting Ascending aorta dilatation Anxiety Surgical History History of dilation and curettage Hx of inguinal hernia surgery Family History Family History Mother High blood pressure High cholesterol Atrial fibrillation Father Asthma Maternal Grandmother High blood pressure Maternal Grandfather High blood pressure Alcoholism Family/Other Asthma High blood pressure Brother CHF (congestive heart failure) Social History Social History Housing: House Patient Tobacco Use Status: Former Tobacco user e-Cigarette/Vaping Use: Former Use Second Hand Smoke Exposure: No Advance Directives: No Advance Directives Information Provided: No service: No Current occupational status: employed Current occupation: [employer] Current occupational exposures/hazards: No Cognitive needs: No Hearing needs: No Vision needs: No Physical Exam 2 Vital Signs: Vital Signs: Last Vital Signs Temp 98.5 F 02/19/24 13:47 Pulse 71 02/19/24 13:47 Resp 18 02/19/24 13:47 BP 117/73 02/19/24 13:47 Pulse Ox 98 02/19/24 13:47 O2 Del Method Room Air 02/19/24 13:47 BMI result Body Mass Index 35.1 Const: General: cooperative, no acute distress, alert and awake Nutritional Appearance: well nourished Orientation/consciousness: patient oriented x3 Limitations: no limitations HEENT: Head: Yes normal to inspection and Yes atraumatic Ears: hearing grossly normal bilaterally and external ears normal General nose exam: Normal external nose present, no nasal discharge noted and no epistaxis Face and sinus: Yes normal facial exam, No abrasion and No laceration Mouth: Normal oral and palatal mucosa present, no drooling and no muffled voice Eyes: General: appearance normal, both eyes and all related structures P eriorbital: periorbital findings normal Eyelids: Yes eyelids normal C onjunctivae: conjunctivae normal Pupils: Equal, round and reactive pupils present EOM: EOMs intact bilaterally Neck: Neck: Yes normal visual inspection, Yes full ROM and Yes no lymphadenopathy Chest: Chest palpation & inspection: normal inspection of the chest Resp: Effort & Inspection: normal respiratory effort, able to speak in complete sentences and no audible wheezes Auscultation: clear to auscultation bilaterally, no crackles, no rales, no rhonchi and no wheezes Cardio: Rate: regular rate Rhythm: regular rhythm GI: Inspection: Yes normal to inspection Skin: General skin exam: no rashes or lesions noted Neuro: General: patient oriented x3 and moves all extremities Cranial nerves: Yes Equal, round and reactive pupils present and Yes Normal hearing present Cognition (Neuro): normal cognition Extrem: General: Yes normal to inspection, Yes full ROM and Yes capillary refill normal Psych: Appearance: grossly normal Mental Status: mental status grossly normal Affect: normal affect Attitude: cooperative Thought process: N ormal thought process present Thought content: Normal thought content present Insight: Good insight present (Psych) Medications Administered Discontinued Medications Generic Name Dose Route Start Last Admin Trade Name Freq PRN Reason Stop Dose Admin Iohexol 70 ml 02/19/24 12:50 02/19/24 12:50 Iohexol 350 Mg/Ml 100 Ml Infus..Btl IV 02/19/24 12:51 70 ml ONCE ONE Administration Medical Decision Making Medical Decision Making [facility] Narrative: Patient is a 33 year old assigned female at with a history of mild ascending aorta dilatation, anxiety, GERD, heart murmur, and mcgee's palsy presenting to the emergency department today with central and left sided chest pain. Patient's physical exam was as noted in the physical exam portion of this note. Patient's blood work was unremarkable. Patient's EKG was unremarkable. Patient's chest x-ray and chest CTA showed no acute process. I explained my physical exam findings as well as all test results to the patient. I answered all questions asked by the patient. I stressed the importance of the patient taking her medication as directed (either prescribed or as the over the counter packaging recommends). I stressed the importance of the patient following up with her primary care provider and her edge kitter. I stressed the importance of the patient returning to the emergency department immediately if her symptoms were to worsen or if she were to develop any dizziness, shortness of breath, difficulty breathing, chest pain, blurry vision, loss of vision, nausea, vomiting, abdominal pain, fever, chills, back pain, or any other complaints. Patient verbalized agreement and understanding with this treatment plan and discharge. Differential Diagnosis Differential Diagnoses: The differential diagnosis associated with the presentation includes NSTEMI STEMI Chest pain Atypical chest pain Aortic dissection Pleurisy Costochondritis GERD Admission/Observation Consideration of admission/observation: Escalation of care including admission/observation considered Patient would have been admitted to the hospital had her work up had any findings where hospital admission was appropriate and her clinical presentation warranted hospital admission. Lab Data [facility] Lab Attestation statement: I reviewed the patient's lab results. My interpretation of these results are in the MDM Rationale portion of this note. 02/19/24 09:28 02/19/24 09:28 Labs: Lab Results 02/19/24 Range/Units 09:28 WBC 8.0 (4.8-10.8) X10*3/uL RBC 4.63 (4.20-5.50) X10*6/uL Hgb 13.8 (12.0-16.0) g/dl Hct 39.7 (37.0-47.0) % MCV 85.7 (80.0-98.0) fL MCH 29.8 (27.0-33.0) pg MCHC 34.8 (31.0-35.0) g/dl RDW 12.4 (11.0-16.0) % Plt Count 342 (160-400) X10*3/uL MPV 8.9 L (9.4-12.3) fL Immature Gran % (Auto) 0.4 (0.0-0.4) % Neut % (Auto) 70.4 (45-73) % Lymph % (Auto) 16.8 L (20-40) % [place] % (Auto) 7.5 (2-11) % Eos % (Auto) 4.4 H (0-4) % Baso % (Auto) 0.5 (0-2) % Lymph # (Auto) 1.3 (1.2-4.9) X10*3/uL [place] # (Auto) 0.6 (0.1-1.2) X10*3/uL Eos # (Auto) 0.4 (0.0-0.4) X10*3/uL Baso # (Auto) 0.0 (0.0-0.2) X10*3/uL Abs Immat Gran (auto) 0.03 (0.00-0.03) X10*3/uL Absolute Neuts (auto) 5.6 (2.0-8.3) x10*3/uL Absolute Nucleated RBC 0.000 (0.0-0.012) X10*3/uL Nucleated RBC % (auto) 0.0 (0.0-0.2) /100WBC Sodium 141 (135-145) mmol/L Potassium 3.9 (3.3-5.1) mmol/L Chloride 106 (96-108) mmol/L Carbon Dioxide 27 (22-29) mmol/L Anion Gap 12 (12-20) BUN 6 L (9-16) mg/dL Creatinine 0.79 (0.5-1.4) mg/dL Estim Creat Clear Calc 102.8 Estimated GFR > 60 Random Glucose 104 (60-115) mg/dL Calcium 9.9 (8.4-10.2) mg/dL Troponin I High Sens < 2.7 (<3.5-17.0) ng/L Beta HCG, Quant < 2 mIU/mL Independent Interpretation I performed an independent interpretation of an: EKG, Plain X-Ray and CT Scan Interpretation: My interpretation is in agreement with the radiologist's impression of these imaging studies. L EXAMINATION: XR CHEST CLINICAL INFORMATION: CP COMPARISON: CT images of chest PE protocol, chest August 17, 2023 TECHNIQUE: 2 views of the chest were obtained. FINDINGS: There is no gross pneumothorax. Heart size is normal. No pleural effusion. No new focal consolidation. Mild degenerative changes in the thoracic spine. XR/XR chest 2V IMPRESSION: No new focal consolidation. This study was presented today February 19, 2024 for interpretation. Stat results provided at this time as requested by referring provider. Electronically signed by: Melania Estes MD 02/19/2024 12:53 PM [facility] Dictated By: Melania Estes MD Signed By: Electronically signed by Melania Estes MD 02/19/24 1253 EXAMINATION: CT ANGIOGRAM OF THE CHEST WITHOUT AND WITH CONTRAST CLINICAL INFORMATION: Chest pain COMPARISON: CTA from 08/17/2023 TECHNIQUE: Multidetector volumetric CT imaging of the chest was performed before and after the administration of 70 mL of Omnipaque 350 intravenous contrast without immediate adverse reactions. 3D POSTPROCESSING: Multiple 3-D angiographic images were processed from the initial data set by the chief radiologic technologist at the modality workstation under concurrent physician supervision. DOSE LOWERING TECHNIQUES: This CT examination was performed using dose optimization techniques as appropriate, variously including the following: - Automated exposure control - Adjustment of mA and/or kV according to patient size (this includes techniques or standardized protocols for targeted exams where dose is matched to indication/reason for exam; i.e. extremities or head) - Use of iterative reconstruction technique DLP: 325 mGy-cm. FINDINGS: VASCULAR: ASCENDING AORTA: Motion artifact is present. Ascending thoracic aorta is grossly normal in caliber and widely patent without evidence of aneurysm or dissection AORTIC ARCH: Normal in caliber and patent. No evidence of aneurysm or dissection. Three-vessel arch anatomy. The great vessels are patent. DESCENDING AORTA: Normal in caliber and patent. No evidence of aneurysm or dissection. ABDOMINAL AORTA: Visualized proximal abdominal aorta is normal in caliber. PULMONARY ARTERIES: Examination not tailored to the pulmonary arteries. No evidence of acute pulmonary embolus NONVASCULAR: LUNGS: The lungs are clear with no evidence of inflammation or nodules. MEDIASTINUM: The mediastinum is normal. CORONARY ARTERY CALCIFICATION: None visualized on this study. PLEURA: There is no pleural effusion. No pleural mass or thickening. ABDOMINAL VISCERA: Unremarkable OSSEOUS STRUCTURES: Unremarkable. CT/CT angio chest aorta IMPRESSION: No acute process. Normal appearance of the thoracic aorta. No evidence of aneurysm or dissection. Electronically signed by: Stu Morrissey MD 02/19/2024 01:24 PM [facility] Dictated By: Stu Morrissey MD Signed By: Electronically signed by Stu Morrissey MD 02/19/24 1324 Vent. Rate: 087 BPM Atrial Rate: 087 BPM P-R Int: 146 ms QRS Dur: 086 ms QT Int: 362 ms P-R-T Axes: 048 015 027 degrees QTc Int: 435 ms Normal sinus rhythm Normal ECG When compared with ECG of 17-AUG-2023 13:28, No significant change was found DD/ 0914 Radiology Impression Discussion of test interpretation with radiology: I have reviewed the radiologist's reading. Discharge Plan Discharge Clinical Impression: Atypical chest pain Patient Disposition: Home, Self-Care Instructions: Chest Pain (ED), Chest Wall Pain (ED) Additional Instructions: Your work up was reassuring for no emergent process. Follow up with your primary care provider and your edge kitter. Return to the emergency department immediately if your symptoms worsen or if you develop any dizziness, shortness of breath, difficulty breathing, chest pain, blurry vision, loss of vision, nausea, vomiting, abdominal pain, fever, chills, back pain, or any other complaints. Prescriptions: No Action sucralfate 1 gram tablet 1 g PO BID Qty: 56 0RF Arnuity Ellipta 100 mcg/actuation blister with device 1 inh inhalation DAILY Qty: 30 3RF (DME) Aerochamber MV Spacer See Rx Instructions .Route Qty: 10 0RF Rx Instructions: As directed albuterol sulfate 90 mcg/actuation HFA aerosol inhaler 2 puff inhalation 6XD PRN (Reason: shortness of breath or wheezing) Qty: 6.7 0RF Wegovy 0.25 mg/0.5 mL pen injector 0.25 mg subcut QWEEK Qty: 2 0RF Rx Instructions: administer weeks 1 through 4 of therapy clonidine HCl 0.1 mg tablet 0.1 mg PO BID Referrals: Quentin Quarles MD [Primary Care Provider] - Interventions: ED Discharge Assessment Last Done: 02/19/24 13:47 Discharge Date/Time: 02/19/24 13:50 Print Language: Grenadian
[2024-02-19 11:28] LABS: HCG Quantitative < 2 mIU/mL
[2024-02-19 12:28] VITALS: BP 117/73; PULSE 71; RESP 18; TEMP 36.9; O2SAT 98
[2024-02-19] MEDS: iohexoL 350 MG/ML 100 ML INFUS..BTL 70 ML IV (12:50)
[2024-02-19 13:47] VITALS: BP 117/73; PULSE 71; RESP 18; TEMP 36.9; O2SAT 98
== END 2024-02-19 13:50 | disposition home or self-care (01) ==
PROVIDERS: Physician Assistant Medical; Emergency Provider Emergency Medicine; PCP Family Medicine
DX: R07.89 Other chest pain (principal); Z87.891 Personal history of nicotine dependence; Z79.899 Other long term (current) drug therapy
CPT/HCPCS: 36415; 71046; 71275; 80048; 84484; 84702; 85025; 93005; 99284; Q9967

== ENCOUNTER → 2024-02-19 09:19 | Outpatient (BNV) | payer OTHER, SELFPAY | PROVIDERS: Emergency Provider Emergency Medicine; PCP Family Medicine; Visit Provider Internal Medicine Cardiovascular Disease | DX: R94.31 Abnormal electrocardiogram [ECG] [EKG] (principal) | CPT/HCPCS: 93010 ==

== ENCOUNTER 2024-08-07 09:25 | Outpatient (REF) | payer OTHER, SELFPAY ==
--- NOTE | 2024-08-07 09:29 | PFT_ITS ---
Flows: FEV1: 105 % of predicted at 3.06 L FVC: 101 % of predicted at 3.52 L FEV1/FVC: 87 % Bronchodilator response: Absent Volumes: Total lung capacity: 96 % of predicted at 4.65 L Residual volume: 99 % of predicted at 1.13 L Slow vital capacity: 94 % of predicted at 3.52 L Expiratory reserve volume: 61 % of predicted at 0.71 L Diffusion capacity: Normal Impression: No obstructive or restrictive ventilatory defect. No bronchodilator response. Decreased expiratory reserve volume suggests extrathoracic restriction likely secondary to abdominal obesity. MTDD
[2024-08-07 10:10] VITALS: PULSE 80; O2SAT 98
--- OUTSIDE RECORDS SUMMARY | 2024-08-07 10:43 | XMS_ITS | Clinical Summary ---
Author Organization [facility] it Address [address] [place] [address] Care Team Providers Care Rural Service Engineer Name Role Phone John Lewis MD Primary Care Provider Social History Tobacco Use Types Packs/Day Years Used Date Smoking Tobacco: Never Smokeless Tobacco: Never Alcohol Use Standard Drinks/Week Comments Yes 0 (1 standard drink = 0.6 oz pur e alcohol) Comments Unknown Sex and Gender Information Value Date Recorded Sex Assigned at Not on file Legal Sex Female 4:14 AM EST Gender Identity Not on file Sexual Orientation Not on file Obstetrics History Plan of Treatment Health Maintenance Due Date Last Done Comments Hepatitis B Vaccines (1 of 3 - 19+ 3-dose series) 2008 Depression Screening 02/27/2022 HIV Screening 02/27/2022 Hepatitis C Screening 02/27/2022 Social Influencers of Health Screening 02/27/2022 Cervical Cancer Screening: P ap Smear 05/13/2022 05/13/2019 COVID-19 Vaccine (2023-2 5 season) 2023 Influenza Vaccine (Season Ended) 2024 03/02/20 16 DTaP,Tdap,and Td Vaccines (2 - Td or Tdap) 08/30/2026 08/30/2016 HIB Vaccines Aged Out No longer eligi ble based on patient's age to complete this topic HPV Vaccines Aged Out No longer eligi ble based on patient's age to complete this topic Hepatitis A Vaccines Aged Out No long er eligible based on patient's age to complete this topic IPV Vaccines Aged Out No longer eligi ble based on patient's age to complete this topic MMR Vaccines Aged Out No longer eligi ble based on patient's age to complete this topic Meningococcal ACWY Vaccine Aged Out N o longer eligible based on patient's age to complete this topic Meningococcal B Vaccine Aged Out No l onger eligible based on patient's age to complete this topic Pneumococcal Vaccine: Pediat rics (0 to 5 Years) and At-Risk Patients (6 to 64 Years) Aged Out No longer eligi ble based on patient's age to complete this topic RSV Immunization Patients Un erlinda 20 months Aged Out No longer eligible b ased on patient's age to complete this topic Varicella Vaccines Aged Out No longer eligible based on patient's age to complete this topic Procedures Procedure Name Priority Date/Time Associated Diagnosis Comments PAP SMEAR Routine 05/13/2019 from Last 3 Months or Most Recently Relevant to Health Maintenance Results * Pap smear (05/13/2019) 05/13/2019 Narrative HISTORICAL TESTING LAB RESULTING AGENCY - 05/15/2019 5:26 PM EST [id number] THINPREP PAP, IMAGED: NEGATIVE FOR SQUAMOUS INTRAEPITHELIAL LESION AND MALIGNANCY . ABUNDANT PARTIALLY OBSCURING ACUTE INFLAMMATORY CELLS ARE PRESENT. DEBORA SHERWOOD , MANUEL(ASCP) (CASE ELECTRONICALLY SIGNED 05 15 2019) RESULT OF APTIMA HIGH RISK HPV ASSAY: HIGH RISK HPV: ??NEGATIVE (SEROTYPES 16,18,31,33,35,39,45,51,52,56,58,59,66,68) COMPLETED ON 2019-05-14 ADEQUACY: SATISFACTORY ENDOCERVICAL/TRANSFORMATION ZONE COMPONENT PRESENT. SOURCE: THINPREP PAP HPV ANY DX: ??REFLEX 16 AND 18, CERVICAL, IMAGED CLINICAL INFORMATION: HPV ANY DIAGNOSIS. PAP HX NEG LAST PAP 03/02/16 NEG, Z12.4 us Qian Donaldson CNM LAB CYTOLOGY ORDERABLES Final Result HISTORICAL TESTING LAB RESULTING AGENCY from Last 3 Months or Most Recently Relevant to Health Maintenance Care Teams Rural Service Engineer Relationship Specialty Start Date End Date John Lewis MD [address] [place] [address] YARA LAINEZ [id number] PCP - General Internal Medicine 12/17/19
== END 2024-08-07 09:26 | disposition home or self-care (01) ==
LOC: HO.RESP 09:25
PROVIDERS: PCP Physician Assistant; Visit Provider Nurse Practitioner Family
DX: R06.00 Dyspnea, unspecified (principal)
CPT/HCPCS: 94010; 94640; 94727; 94729

== ENCOUNTER → 2024-08-07 09:29 | Outpatient (BNV) | payer OTHER, SELFPAY | PROVIDERS: PCP Physician Assistant; Visit Provider Internal Medicine Pulmonary Disease | DX: R06.00 Dyspnea, unspecified (principal) | CPT/HCPCS: 94060; 94727; 94729 ==

== ENCOUNTER 2024-08-14 12:36 | Outpatient (REF) | payer OTHER, SELFPAY ==
--- NOTE | ~2024-08-14 | CT_ITS ---
CLINICAL HISTORY: R91.8 - Other nonspecific abnormal finding of lung field CT chest without contrast Comparison: CT/SR - CT ANGIO CHEST AORTA - 02/19/24 12:40 EST Findings: The heart is normal size. The visualized thyroid and mediastinum are unremarkable. The lungs are clear. The upper abdomen is unremarkable. No acute fractures. IMPRESSION: 1. Unremarkable chest CT. This document has been electronically signed by: Saul Mena MD on 08/15/2024 13:25:54
--- OUTSIDE RECORDS SUMMARY | 2024-08-14 13:17 | XMS_ITS | Clinical Summary ---
Author Organization [facility] it Address [address] [place] [address] Care Team Providers Care Chief Of Harbor Patrol Name Role Phone John Lewis MD Primary Care Provider [phone] Social History Tobacco Use Types Packs/Day Years [...] RESULTING AGENCY - 05/15/2019 5:26 PM EST [id number] THINPREP PAP, IMAGED: NEGATIVE FOR SQUAMOUS INTRAEPITHELIAL [...] Recently Relevant to Health Maintenance Care Teams Chief Of Harbor Patrol Relationship Specialty Start Date End Date John Lewis MD [address] [place] [address] YARA LAINEZ [id number] PCP - General Internal Medicine 12/17/19
== END 2024-08-14 12:37 | disposition home or self-care (01) ==
LOC: HO.CT 12:36
PROVIDERS: PCP Family Medicine; Visit Provider Nurse Practitioner Family
DX: R91.8 Other nonspecific abnormal finding of lung field (principal)
CPT/HCPCS: 71250

== ENCOUNTER → 2024-08-14 12:38 | Outpatient (BNV) | payer OTHER, SELFPAY | PROVIDERS: PCP Family Medicine; Visit Provider Radiology Diagnostic Radiology | DX: R91.8 Other nonspecific abnormal finding of lung field (principal) | CPT/HCPCS: 71250 ==

== ENCOUNTER → 2024-09-04 09:45 | Outpatient (REF) | payer OTHER, SELFPAY ==
--- NOTE | 2024-09-04 09:47 | CA_ITS ---
Transthoracic Echocardiogram Patient (Last, First, Middle): Stephany Sandoval, Gender: Female Date of : 1990 Age: 34 Procedure Date: 09/04/2024 Procedure Type: Transthoracic Echocardiogram Location: OP Height: 157.48 cm Weight: 87.09 kg BSA: 1.88 m2 Heart Rate: 65 bpm BP: 104 / 64 mmHg Agribusiness Professor: SB Referring MD: Tramaine Mcnair MD Symptoms: I77.810 - Thoracic aortic ectasia Study Quality: Adequate ECG Rhythm: Sinus Conclusions: - Mildly dilated ascending aorta 3.8 cm otherwise normal study Findings Left Ventricle Normal left ventricular size, thickness, and systolic function. The visually estimated ejection fraction is between 60-65%. Spectral Doppler is indicative of a normal filling pattern. Right Ventricle Normal right ventricular cavity size and systolic function. Atria Both atria are normal in size. There is no evidence of interatrial shunt. Aortic Valve Normal aortic valve structure and function. There is no aortic valve stenosis. There is no aortic valve regurgitation. Mitral Valve Normal mitral valve structure and function. There is trace mitral valve regurgitation. There is no mitral valve stenosis. Pulmonic Valve The pulmonic valve is likely normal. Tricuspid Valve Normal tricuspid valve structure. There is trace tricuspid valve regurgitation. The right ventricular systolic pressure is normal. The right ventricular systolic pressure is 20 mmHg. Normal right atrial pressure. There is no evidence of pulmonary hypertension. Great Vessels The pulmonary artery was not well visualized. There is mild dilatation of the ascending aorta measuring 3.80 cm. Venous The inferior vena cava is normal in size and collapses greater than 50% with inspiration. Pericardium/Pleural There is no evidence of pericardial effusion. Prior Study Comparison No significant change compared to prior study dated: 09/08/2023. Measurements 2D Linear Measurements IVSd: 1.00 0.6-0.9/0.6-1.0 cm LVIDd: 4.39 3.9-5.3/4.2-5.9 cm LVIDd Index: 2.34 2.4-3.2/2.2-3.1 cm/m2 LVIDs: 3.08 2.0-3.6 cm LVPWd: 0.89 0.7-1.1 cm LA Diam: 3.70 2.7-3.8/3.0-4.0 cm LAIDs Index: 1.97 1.5-2.3 cm/m2 LV Mass: 209.65 67-162/88-224 g LV Mass Index: 111.52 43-95/49-115 g/m2 LVOT Diam: 2.10 3.0+(-)1.3 cm 2D Systolic Function EF 4C: 62.90 >55% EF 2C: 59.90 >55% EF BiP: 59.80 >55% Mitral Valve MV Pk E: 0.67 MV PK A: 0.51 MV Decel Time: 239.00 E/A: 1.30 E'Lateral: 10.60 E'Medial: 6.09 E/E' Med: 11.00 E/E' Lat: 6.30 PHT: 70.00 MVA PHT: 3.14 Decel Jennings: 2.80 Aortic Valve AoV Pk Mando: 1.38 AoV Pk Grad: 8.00 BRODIE: 3.18 LVOT LVOT Pk Mando: 1.35 LVOT Mn Mando: 0.86 LVOT VTI: 0.28 LVOT Pk Grad: 7.00 LVOT Mn Grad: 4.00 LVOT Diam: 2.10 LVOT Area: 3.46 Diastolic Function MV Pk E: 0.67 MV Pk A: 0.51 E/A: 1.30 E'Medial: 6.09 E/E' Med: 11.00 E' Laterial: 10.60 E/E' Lat: 6.30 Right Ventricle TAPSE (mm): 21.20 TVS' Mando: 11.50 Tricuspid Valve TR Pk Mando: 2.07 TR Pk Grad: 17.00 RA Press: 3.00 RVSP: 20.00 Great Vessels Aorta Sinus of Valsalva: 3.30 2.0-3.5 cm Ao Asc: 3.80 2.1-3.4 cm Ao Arch: 2.90 Ao Desc: 1.50 Pulmonary Veins Pulm Vein S/D 0.80 Pulmonary Valve PV Pk Mando: 0.74 Peak PV Grad: 2.00 Updated in Other Vendor System with Status of Final Lauro Daniel MD electronically signed on 09/04/2024 1:37:51 PM with status of Final
--- OUTSIDE RECORDS SUMMARY | 2024-09-04 10:47 | XMS_ITS | Clinical Summary ---
Author Organization [facility] it Address [address] [place] [address] Care Team Providers Care Periodicals Clerk Name Role Phone John Lewis MD Primary [...] RESULTING AGENCY - 05/15/2019 5:26 PM EST [id number] THINPREP PAP, IMAGED: NEGATIVE FOR SQUAMOUS INTRAEPITHELIAL LESION AND MALIGNANCY . ABUNDANT PARTIALLY OBSCURING ACUTE INFLAMMATORY CELLS ARE PRESENT. DEBORA SHERWOOD , MANUEL(ASCP) (CASE ELECTRONICALLY SIGNED 05 15 2019) RESULT OF APTIMA HIGH RISK HPV ASSAY: HIGH RISK HPV: NEGATIVE (SEROTYPES 16,18,31,33,35,39,45,51,52,56,58,59,66,68) COMPLETED ON 2019-05-14 ADEQUACY: SATISFACTORY ENDOCERVICAL/TRANSFORMATION ZONE COMPONENT PRESENT. SOURCE: THINPREP PAP HPV ANY DX: REFLEX 16 AND 18, CERVICAL, IMAGED CLINICAL INFORMATION: HPV ANY DIAGNOSIS. PAP HX NEG LAST PAP 03/02/16 NEG, Z12.4 us Qian Donaldson CNM LAB CYTOLOGY ORDERABLES Final Result HISTORICAL TESTING LAB RESULTING AGENCY from Last 3 Months or Most Recently Relevant to Health Maintenance Care Teams Periodicals Clerk Relationship Specialty Start Date End Date John Lewis MD [address] [place] [address] YARA LAINEZ [id number] PCP - General Internal Medicine 12/17/19
== END ==
LOC: HO.CARD 09:45
PROVIDERS: PCP Physician Assistant; Visit Provider Internal Medicine
DX: I77.810 Thoracic aortic ectasia (principal)
CPT/HCPCS: 93306

== ENCOUNTER → 2024-09-04 09:47 | Outpatient (BNV) | payer OTHER, SELFPAY | PROVIDERS: PCP Physician Assistant; Visit Provider Internal Medicine Cardiovascular Disease | DX: I77.810 Thoracic aortic ectasia (principal) | CPT/HCPCS: 93306 ==

== ENCOUNTER 2024-09-18 12:44 | Outpatient (AMB) | payer OTHER, SELFPAY ==
--- NOTE | 2024-09-18 13:13 | MHC.OFFVIS ---
Vital Signs 09/18/24 13:15 Height 5 ft 2 in Weight 200 lb 9.93 oz BMI 36.7 BP 122/70 Blood Pressure Location Lt brachial Position Sitting Pulse 77 Pulse Source Pulse Oximeter Intake Visit Reasons: follow up results Allergies No Known Allergies Allergy (Verified 02/19/24 09:19) Medication List - Last Reconciled 09/18/24 by Avelino Carl NP inhalational spacing device (Aerochamber MV spacer) As directed HPI Comments Details: This is a 34-year-old female patient coming in for a follow-up visit. Patient has been seen in the office for questions of dilated ascending aorta. Patient otherwise with no known history of coronary artery disease, ischemic disease or cardiomyopathy. Patient reports feeling well overall and denies any cardiac symptoms including exertional chest pain, palpitations, dizziness, orthopnea, PND, leg edema, presyncope, or syncope. Patient states that she has been having some shortness of breath and had a chest CT and pulmonary function tests with pulmonology which was all negative and showed a decreased expiratory reserve volume likely secondary to abdominal obesity. Patient reports that she is trying to stay more active now. [facility] Medical History Adult general medical exam Laboratory exam ordered as part of routine general medical examination Lightheadedness Dyspnea Well woman exam with routine gynecological exam Numbness and tingling Screening for cervical cancer Nausea & vomiting Ascending aorta dilatation Anxiety Surgical History History of dilation and curettage Hx of inguinal hernia surgery Family History Mother High blood pressure High cholesterol Atrial fibrillation Father Asthma Maternal Grandmother High blood pressure Maternal Grandfather High blood pressure Alcoholism Family/Other Asthma High blood pressure Brother CHF (congestive heart failure) Social History Housing: House Patient Tobacco Use Status: Former Tobacco user e-Cigarette/Vaping Use: Former Use Second Hand Smoke Exposure: No service: No Current occupational status: employed Current occupation: [email or web address] Current occupational exposures/hazards: No Cognitive needs: No Hearing needs: No Vision needs: No Female Reproductive History Menstrual Age of Menarche: 11 Review of Systems Const Denies weakness ENT Denies dizziness Card Denies chest pain, Denies chest pain with activity, Denies syncope, Denies rapid heart rate, Denies pedal edema, Denies edema, Denies leg edema, Denies lightheadedness, Denies palpitations, Denies dyspnea, Denies dyspnea on exertion and Denies orthopnea Resp Denies cough, Denies dyspnea and Denies dyspnea on exertion GI Denies hematochezia and Denies change in stool character Musc Denies abnormal gait, Denies muscle cramps, Denies muscle weakness, Denies numbness, Denies radiating pain into limb and Denies tingling Neuro Denies abnormal gait, Denies dizziness, Denies syncope, Denies numbness, Denies tingling and Denies weakness Endo Denies palpitations Physical Exam Vital Signs: Last Vital Signs Pulse 77 09/18/24 13:15 BP 122/70 09/18/24 13:15 BMI result Body Mass Index 36.7 Const General: cooperative, healthy appearing, comfortable and no acute distress Orientation/consciousness: patient oriented x3 HEENT Head: Yes normal to inspection Neck Neck: Yes normal visual inspection, Yes trachea midline and Yes supple Chest Chest palpation & inspection: normal inspection of the chest Resp Effort & Inspection: normal respiratory effort Auscultation: clear to auscultation bilaterally, no crackles, no rales, no rhonchi and no wheezes Cardio Jugular venous distension: no JVD Palpation: normal PMI Rate: regular rate Rhythm: regular rhythm Heart sounds: S1 normal heart sound present, S2 normal heart sound present, no click, no gallops, Murmur heart sound present systolic at the right sternal border and no rubs Peripheral pulses: Peripheral pulses 2+ throughout GI Inspection: Yes normal to inspection Palpation (GI): Soft to palpation Auscultation: normal bowel sounds Skin General skin exam: no rashes or lesions noted Neuro General: patient oriented x3 Extrem General: Yes normal to inspection, No no pedal edema and No calf tenderness Psych Appearance: grossly normal Mental Status: mental status grossly normal Speech and movement: Normal speech and movement present Assessment & Plan Assessment & Plan (1) Mild ascending aorta dilatation: Code(s): I77.810 - Thoracic aortic ectasia Category: Medical (2) Heart murmur: Code(s): R01.1 - Cardiac murmur, unspecified Category: Medical Plan 09/04/2024-echo study showed a normal LV systolic function with an ejection fraction between 60-65%, with mildly dilated ascending aorta 3.8 cm. The numbers are unchanged from a year ago. We will monitor this with periodic echoes. Blood pressure today is within normal limits. Advised heart healthy diet, regular exercise, losing weight, and management of vascular risk factors. We will continue the plan of monitoring her with limited echo in a year and a regular echo in two years. If an increase in size is noted then, we will bring patient in for a follow-up visit. In the interim, patient will call the office with any concerns or change in symptoms. This note was generated using voice recognition software. While every effort has been made to ensure accuracy and proper senior software developer, there may be occasional errors that could affect the content or meaning of the described symptoms. Orders: Orders CA Echo Limited 1 Year I77.810 - Thoracic aortic ectasia Coding Level of Care Code Est Pt Level 3 (72237) Complex EM visit Add On G2211 Diagnoses Mild ascending aorta dilatation I77.810 Heart murmur R01.1 Time Spent (min) 28 Comment Time spent in reviewing the chart, test results, assessment, counseling and documentation.
--- OUTSIDE RECORDS SUMMARY | 2024-09-18 13:13 | XMS_ITS | Clinical Summary ---
Author Organization [facility] it Address [address] [place] [address] Care Team Providers Care Vibrator Equipment Tester Name Role Phone John Lewis MD Primary [...] RESULTING AGENCY - 05/15/2019 5:26 PM EST [id number] THINPREP PAP, IMAGED: NEGATIVE FOR SQUAMOUS INTRAEPITHELIAL [...] Recently Relevant to Health Maintenance Care Teams Vibrator Equipment Tester Relationship Specialty Start Date End Date John Lewis MD [address] [place] [address] YARA LAINEZ [id number] PCP - General Internal Medicine 12/17/19
[2024-09-18 13:15] VITALS: BP 122/70; PULSE 77; BMI 36.7
== END 2024-09-18 13:36 | disposition home or self-care (01) ==
LOC: HO.HCS 12:45
PROVIDERS: PCP Physician Assistant
DX: I77.810 Thoracic aortic ectasia (principal); R01.1 Cardiac murmur, unspecified
CPT/HCPCS: 99213

== ENCOUNTER 2024-10-30 10:42 | Outpatient (AMB) | payer OTHER, SELFPAY ==
--- NOTE | 2024-10-30 10:49 | A.OFFPC_ITS ---
Vital Signs 10/30/24 10:53 Height 5 ft 2 in Weight 200 lb 1 oz BMI 36.6 BP 102/70 Blood Pressure Location Rt brachial Position Sitting Respiration 16 Pulse 77 Pulse Source Pulse Oximeter Temp 97.4 F Temp Source Temporal Artery Scan Pulse Oximetry (%) 96 Oxygen Delivery Method Room Air Intake Visit Reasons: Annual Intake Note: Stephany presents in the office today for her annual physical. Allergies No Known Allergies Allergy (Verified 10/30/24 10:52) Medication List - Last Reconciled 10/30/24 by Cami Jain PA-C tirzepatide (weight loss) (Zepbound) 2.5 mg (0.5 mL) subcut QWEEK Tobacco use date assessed: 10/30/24 Dental Screening Dental Screen Date: 10/30/24 Did you have a dental visit in the last 12 months?: Yes Did you have a dental problem in the last 6 months where you did not have access to dental care?: No Was dental information given to patient?: Patient has dentist HPI Annual HPI Details Patient is a 34-year-old female who presents today for a physical exam. She has a significant past medical history of ascending aorta dilatation, multiple pulmonary nodules, questionable pulmonary hypertension, GERD , fatty liver, history of Mcgee's palsy and anxiety. General- She states she has a hx of obesity and has tried hard to lose weight and wants go on Zepbound. She has tried low carb, calorie restriction diets, intermittent fasting and has found that she plateaus. She states she has never been able to lose more than 10 lbs with diet and exercise. Her fam members are on Zepbound and tolerate well. She would be worried to try something else as phentermine can cause palpitations and she has palpitations at baseline. She also gets worried as she has anxiety and does not want to take any medication for this because it is currently well managed. She says that she does not want wellbutrin CV: Blood pressure today in the office is 102/70. She has seen Cardiology and her last echo showed No significant change from prior echo. PULM: Recently saw PULM last month and had a chest CT which was negative along with negative PFTs. The shortness a breath they believe to slightly be related to weight. Psych: She is on clonidine prn. Shovel Logger: Up-to-date. [facility] Medical History Adult general medical exam Laboratory exam ordered as part of routine general medical examination Lightheadedness Dyspnea Well woman exam with routine gynecological exam Numbness and tingling Screening for cervical cancer Nausea & vomiting Ascending aorta dilatation Anxiety Surgical History History of dilation and curettage Hx of inguinal hernia surgery Family History Mother High blood pressure High cholesterol Atrial fibrillation Father Asthma Maternal Grandmother High blood pressure Maternal Grandfather High blood pressure Alcoholism Family/Other Asthma High blood pressure Brother CHF (congestive heart failure) Social History (Updated 10/30/24 @ 10:53 by Barbara Brown MA) Housing: House Alcohol intake: current Patient Tobacco Use Status: Former Tobacco user e-Cigarette/Vaping Use: Former Use Second Hand Smoke Exposure: No service: No Current occupational status: employed Current occupation: [employer] Current occupational exposures/hazards: No Cognitive needs: No Hearing needs: No Vision needs: No Female Reproductive History Menstrual Age of Menarche: 11 Questionnaire PHQ-9 Over the last 2 weeks, how often have you been bothered by any of the following problems? 1. Little interest or pleasure in doing things: not at all 2. Feeling down, depressed, or hopeless: not at all 3. Trouble falling or staying asleep, or sleeping too much: not at all 4. Feeling tired or having little energy: not at all 5. Poor appetite or overeating: not at all 6. Feeling bad about yourself - or that you are a failure or have let yourself or your family down: not at all 7. Trouble concentrating on things, such as reading the newspaper or watching television: not at all 8. Moving or speaking so slowly that other people could have noticed. Or the opposite - being so fidgety or restless that you have been moving around a lot more than usual: not at all 9. Thoughts that you would be better off or of hurting yourself in some way: not at all Total score: 0 Depression Screening Interpretation: Negative Depression Screening Done: Yes 85378 - PHQ-9 Billing: Yes Source: Developed by Drs. Nhan Stephens, Meryr Uribe, Rodney Edge and colleagues, with an educational yenni from [employer]. Thrive Questionnaire Date Thrive assessed: 10/30/24 I am a: Patient What is your living situation today?: I have a steady place to live Within the past 12 months, did the food you bought not last and you didn't have the money to get more?: Never true Within the past 12 months, did you worry whether your food would run out before you got money to buy more?: Never true Do you have trouble paying for medicines?: No Do you have trouble getting transportation to medical appointments?: No Do you have trouble paying your heating and electricity bill?: No Do you have trouble taking care of your child, family member or friend?: No Do you have trouble with day-to-day activities such as bathing, preparing meals, shopping, managing finances, etc.?: No Are you currently unemployed and looking for a job?: No Are you interested in more education?: No Please select the resources that you would like help with: None Currently or been in a relationship where the following occur: No concerns reported THRIVE Score: 0 AUDIT C Alcohol Use Questionnaire (AUDIT-C) 1. How often do you have a drink containing alcohol?: Monthly or less 2. How many drinks containing alcohol do you have on a typical day when you are drinking?: 1 or 2 3. How often do you have six or more drinks on one occasion?: Never Total Score: 1 GRAY-7 AMB Questionnaire GRAY-7 Date GRAY - 7 assessed: 10/30/24 Feeling nervous, anxious, or on edge: 2 = More than half the days Not being able to stop or control worryin = Several days Worrying too much about different things: 0 = Not at all Trouble relaxin = Several days Being so restless that it is hard to sit still: 0 = Not at all Becoming easily annoyed or irritable: 2 = More than half the days Feeling afraid as if something awful might happen: 2 = More than half the days Total GRAY-7 score (0-4 normal; 5-9 mild; 10-14 moderate; 15-21 severe): 8 Source: Developed by Drs. Nhan Stephens, Merry BRodney Ventura and colleagues, with an educational yenni from [employer]. GRAY-7 Assessment Billing GRAY-7 Assessment Tool: GRAY-7 Assessment 67072 Physical exam (Primary Care) Vital Signs: Last Vital Signs Temp 97.4 F 10/30/24 10:53 Pulse 77 10/30/24 10:53 Resp 16 10/30/24 10:53 BP 102/70 10/30/24 10:53 Pulse Ox 96 10/30/24 10:53 Oxygen Delivery Method Room Air 10/30/24 10:53 BMI result Body Mass Index 36.6 Tobacco/Smoking Status: Tobacco use Status Tobacco use date assessed 10/30/24 10/30/24 10:56 Patient Tobacco Use Status Former Tobacco user 10/30/24 10:53 e-Cigarette/Vaping Use Former Use 10/30/24 10:53 PHQ-9: PHQ-9 Score PHQ-9: Total score 0 10/30/24 12:20 Depression Screening Interpretation: Negative Thrive Assessment: Date of Thrive Assessment Date Thrive assessed 10/30/24 10/30/24 10:51 Currently or been in a relationship where the following occur: No concerns reported Const Orientation/consciousness: patient oriented x3 HENMT Ears: hearing grossly normal bilaterally and TM's normal bilaterally General nose exam: No nasal polyps present Face and sinus: Yes sinuses nontender Mouth: Normal oral and palatal mucosa present Eyes Pupils: Equal, round and reactive pupils present EOM: EOMs intact bilaterally Neck Neck: Yes full ROM and Yes no lymphadenopathy Thyroid: Thyroid normal Chest Chest palpation & inspection: normal inspection of the chest Resp Auscultation: clear to auscultation bilaterally Cardio Rate: regular rate Rhythm: regular rhythm Heart sounds: S1 normal heart sound present and S2 normal heart sound present Peripheral pulses: Peripheral pulses 2+ throughout GI Other: Soft, nontender Auscultation: normal bowel sounds Rectal Exam - Female: deferred General: Yes no CVA tenderness Back/Spine/Pelvis Other: Nontender Back: no CVA tenderness Skin General skin exam: no rashes or lesions noted Neuro General: patient oriented x3, gait normal, CN's II-XI intact bilaterally and deep tendon reflexes 2+ bilaterally Cranial nerves: Yes Equal, round and reactive pupils present Motor exam (neuro): 5/5 motor strength present throughout Sensory Exam: double simultaneous stimulation for sensation normal Coordination: [id number] test normal and Romberg test negative Extrem General: Yes normal to inspection and Yes full ROM Psych Affect: normal affect Attitude: cooperative Thought process: Normal thought process present Thought content: Normal thought content present Insight: Good insight present (Psych) Judgement: Good judgement present (Psych) Results Reviewed Results Reviewed: CT chest without contrast Comparison: CT/SR - CT ANGIO CHEST AORTA - 02/19/24 12:40 EST Findings: The heart is normal size. The visualized thyroid and mediastinum are unremarkable. The lungs are clear. The upper abdomen is unremarkable. No acute fractures. IMPRESSION: 1. Unremarkable chest CT. Coding Level of Care Code Est Pt Prev Care 18-39y(66107) Diagnoses Encounter for routine history and physical examination Z00.00 Obesity (BMI 30.0-34.9) E66.9 Mild ascending aorta dilatation I77.810 IFG (impaired fasting glucose) R73.01 Additional Codes GRAY-7 Assessment Billing - GRAY-7 Assessment Tool: GRAY-7 Assessment [id number] ([id number]) PHQ-9 - 94039 - PHQ-9 Billing: Yes ([id number]) Assessment & Plan Assessment & Plan (1) Encounter for routine history and physical examination: Code(s): Z00.00 - Encounter for general adult medical examination without abnormal findings Plan: Health maintenance reviewed. Labs ordered. (2) Obesity (BMI 30.0-34.9): Code(s): E66.9 - Obesity, unspecified Category: Medical Plan: phentermine would not be recommended due to hx palpitations wellbutrin would not be recommended due to anxiety dx (3) Mild ascending aorta dilatation: Code(s): I77.810 - Thoracic aortic ectasia Category: Medical Plan: Following with cardiology (4) IFG (impaired fasting glucose): Code(s): R73.01 - Impaired fasting glucose Category: Medical Plan: Labs ordered today. We will follow up pending test results Orders: Orders Comprehensive [place]. Panel Fast Today E66.9 - Obesity, unspecified, I77.810 - Thoracic aortic ectasia, R73.01 - Impaired fasting glucose, Z00.00 - Encounter for general adult medical examination without abnormal findings Complete Blood Count Auto Diff Today E66.9 - Obesity, unspecified, I77.810 - Thoracic aortic ectasia, R73.01 - Impaired fasting glucose, Z00.00 - Encounter for general adult medical examination without abnormal findings Hemoglobin A1c Today E66.9 - Obesity, unspecified, I77.810 - Thoracic aortic ectasia, R73.01 - Impaired fasting glucose, Z00.00 - Encounter for general adult medical examination without abnormal findings TSH reflex Free T4 Today E66.9 - Obesity, unspecified, I77.810 - Thoracic aortic ectasia, R73.01 - Impaired fasting glucose, Z00.00 - Encounter for general adult medical examination without abnormal findings Lipid Panel Today E66.9 - Obesity, unspecified, I77.810 - Thoracic aortic ectasia, R73.01 - Impaired fasting glucose, Z00.00 - Encounter for general adult medical examination without abnormal findings Medications: New tirzepatide (weight loss) (Zepbound) for 4 weeks 2.5 mg (0.5 mL) subcut QWEEK 2 mL 1RF
[2024-10-30 10:53] VITALS: BP 102/70; PULSE 77; RESP 16; TEMP 36.3; O2SAT 96; BMI 36.6
--- OUTSIDE RECORDS SUMMARY | 2024-10-30 11:32 | XMS_ITS | Clinical Summary ---
Author Organization [facility] it Address [address] [place] [address] Care Team Providers Care Java Technical Architect Name Role Phone John Lewis MD Primary [...] of 3 - 19+ 3-dose series) 2008 HIV Screening 02/27/2022 Hepatitis C Screening 02/27/2022 Social Influencers of Health Screening 02/27/2022 Cervical Cancer Screening: P ap Smear 05/13/2022 05/13/2019 COVID-19 Vaccine ( - 2023-2 5 season) 2023 Depression Screening 03/20/2024 Influenza Vaccine (#1) 2024 03/02/2016 DTaP,Tdap,and Td Vaccines (2 - Td or [...] 5 Years) and At-Risk Patients (6 to 49 Years) Aged Out No longer eligi ble [...] RESULTING AGENCY - 05/15/2019 5:26 PM EST [id number] THINPREP PAP, IMAGED: NEGATIVE FOR SQUAMOUS INTRAEPITHELIAL [...] Recently Relevant to Health Maintenance Care Teams Java Technical Architect Relationship Specialty Start Date End Date John Lewis MD [address] [place] [address] [facility]REPLACED BY [facility] [place] [address] PCP - General Internal Medicine 12/17/19
== END 2024-10-30 11:20 | disposition home or self-care (01) ==
LOC: HO.HMCFM 10:43
PROVIDERS: PCP Physician Assistant; Visit Provider Physician Assistant
DX: Z00.00 Encounter for general adult medical examination without abnormal findings (principal); E66.9 Obesity, unspecified; Z68.36 Body mass index [BMI] 36.0-36.9, adult; I77.810 Thoracic aortic ectasia; R73.01 Impaired fasting glucose

== ENCOUNTER → 2024-10-30 10:42 | Outpatient (BNVA) | payer OTHER, SELFPAY | PROVIDERS: PCP Physician Assistant; Visit Provider Physician Assistant | DX: Z00.00 Encounter for general adult medical examination without abnormal findings (principal); R91.8 Other nonspecific abnormal finding of lung field; K21.9 Gastro-esophageal reflux disease without esophagitis; F41.9 Anxiety disorder, unspecified; E66.9 Obesity, unspecified; I77.810 Thoracic aortic ectasia; R73.01 Impaired fasting glucose; Z68.36 Body mass index [BMI] 36.0-36.9, adult | CPT/HCPCS: 96127 ==